=== PATIENT | male | born 1935 | race Caucasian/White ===

== ENCOUNTER 2017-10-12 08:08 | Day surgery (SDC) | payer MEDICARE, OTHER ==
[~2017-10-12] VITALS: Ht 172.7 cm; Wt 108.0 kg
[~2017-10-12 08:08] MED LIST: ALPR.25 PO; AMLO5 PO; ASPI325EC; ASPI81CH; ASPI81CH PO; ASPI81EC; ATEN50; ATEN50 PO; ATOR40TA PO; ATOR80 PO; Aspir 8181 MG PO; Benazepril HCl10 MG PO; CAPT25 PO; CARV25 PO; CARV6.25 PO; CEPH500 PO; CHOL10002 PO; CLOB.05TC TOP; CLOP75 PO; CYCL10 PO; DELTASONE20 MG PO; DOCU100 PO; Duoneb 2.5-0.5 M3 ML IH; ESZO3 PO; FAMO40 PO; FLUO10; FLUO20 PO; FLUSAL5005 INH; FLUT.05NI; FURO20 PO; FURO40 PO; HYDACE5 PO; HYDCHL12.5; HYDHCL25 PO; HYDR1TAB94 PO; K-Dur20 MEQ; LEVO750 PO; LIDO2TG30 TOP; LISI5 PO; LOSA25; LOSA25 PO; LOSHYD PO; Lanoxin125 MCG; METO2.5; MONT10T; MULTCH; MULVITMINF PO; MUPI2TO; OMEP20ER PO; Omeprazole20 M1 PO; POTA10T PO; POTCHL10ER PO; PRED10 PO; PRED20 PO; PROZAC20 MG PO; Prednisone20 MG PO; Prozac20 MG; Prozac20 MG PO; SERT50 PO; SIMV40; SPIHYD; SPIR25 PO; TAMS.4ER PO; TAMSULOSIN HCL0.4 MG PO; TEMA15 PO; TIOT18 IH; TIOT18 PO; Tylenol325 MG PO; VITB100; VOL-CARE RX TA1 EACH PO; XYZAL5 MG; ZAFI20 PO
[2017-10-13 04:13] LABS: BASOPHILS ABSOLUTE AUTO 0.05 K/mm3 (0.00-0.23); BASOPHILS PERCENT AUTO 1 % (0-2); EOSINOPHILS ABSOLUTE AUTO 0.17 K/mm3 (0.00-0.68); EOSINOPHILS PERCENT AUTO 3 % (0-6); Hematocrit 34.9 % (37.0-53.0); Hemoglobin 9.8 g/dL (13.5-17.5); IMMATURE GRAN ABSOLUTE AUTO 0.01 K/mm3 (0.00-0.10); IMMATURE GRAN PERCENT AUTO 0 % (0-1); LYMPHOCYTES ABSOLUTE AUTO 1.14 K/mm3 (0.84-5.20); LYMPHOCYTES PERCENT AUTO 18 % (21-46); MONOCYTES ABSOLUTE AUTO 0.66 K/mm3 (0.16-1.47); MONOCYTES PERCENT AUTO 10 % (4-13); Mean Corpuscular HGB 25.1 pg (26.0-34.0); Mean Corpuscular HGB Conc 28.1 g/dL (31.5-36.5); Mean Corpuscular Volume 89 fL (80-100); Mean Platelet Volume 9.6 fL (9.1-12.4); NEUTROPHILS ABSOLUTE AUTO 4.36 K/mm3 (1.96-9.15); NEUTROPHILS PERCENT AUTO 68 % (41-73); Platelet Count 161 K/mm3 (150-400); RDW Standard Deviation 52.7 fL (35.1-46.3); Red Blood Cell Count 3.91 M/mm3 (4.30-5.90); White Blood Cell Count 6.39 K/mm3 (4.00-11.30)
[2017-10-13 04:41] LABS: Bun/Creatinine Ratio 13.4 (12.0-20.0); Calcium, Blood 8.3 mg/dL (8.5-10.1); Creatinine, Blood 1.57 mg/dL (0.60-1.20); Potassium, Blood 4.3 mmol/L (3.5-5.5)
[2017-10-13] MEDS ORDERED: RANI150 PO (10:41)
[2017-10-13] MEDS ORDERED: NAC600 MG PO (10:41)
== END 2017-10-13 11:21 | disposition home or self-care (01) ==
LOC: MHTC 08:08 → ICUE 14:50 → MHTC 10-13 11:21
PROVIDERS: Internal Medicine Interventional Cardiology
PROC: 4A023N7 Measurement of Cardiac Sampling and Pressure, Left Heart, Percutaneous Approach (ICD-10-PCS; principal; 2017-10-12)
PROC: 4A033BC Measurement of Arterial Pressure, Coronary, Percutaneous Approach (ICD-10-PCS; principal; 2017-10-12)
PROC: B213YZZ Fluoroscopy of Multiple Coronary Artery Bypass Grafts using Other Contrast (ICD-10-PCS; principal; 2017-10-12)
PROC: 027035Z Dilation of Coronary Artery, One Artery with Two Drug-eluting Intraluminal Devices, Percutaneous Approach (ICD-10-PCS; principal; 2017-10-12)
PROC: 02703ZZ Dilation of Coronary Artery, One Artery, Percutaneous Approach (ICD-10-PCS; principal; 2017-10-12)
PROC: B211YZZ Fluoroscopy of Multiple Coronary Arteries using Other Contrast (ICD-10-PCS; principal; 2017-10-12)
PROC: B218YZZ Fluoroscopy of Left Internal Mammary Bypass Graft using Other Contrast (ICD-10-PCS; principal; 2017-10-12)
PROC: B240ZZ3 Ultrasonography of Single Coronary Artery, Intravascular (ICD-10-PCS; principal; 2017-10-12)
DX: I25.10 Atherosclerotic heart disease of native coronary artery without angina pectoris (principal); R94.39 Abnormal result of other cardiovascular function study; R06.02 Shortness of breath; G47.30 Sleep apnea, unspecified; Z79.02 Long term (current) use of antithrombotics/antiplatelets; Z99.81 Dependence on supplemental oxygen
CPT/HCPCS: 36415; 80048; 85025; 92978; 93005; 93010; 93455; 93571; C1725; C1753; C1760; C1769; C1874; C9600; J1644; J2250; J3010; J7030; Q9967

== ENCOUNTER 2017-11-02 18:46 | Inpatient (IN) | payer MEDICARE, OTHER ==
[~2017-11-02] VITALS: Ht 182.9 cm; Wt 104.0 kg
[~2017-11-02 18:46] MED LIST changes: +NAC600 MG PO; +RANI150 PO
[2017-11-02 19:14] LABS: PO2 Arterial 110 mmHg (80-100); pH Blood Arterial 7.22 (7.35-7.45)
[2017-11-02 19:15] LABS: PCO2 Arterial > 105 mmHg (35-45)
[2017-11-02 19:18] LABS: BASOPHILS ABSOLUTE AUTO 0.08 K/mm3 (0.00-0.23); BASOPHILS PERCENT AUTO 1 % (0-2); EOSINOPHILS ABSOLUTE AUTO 0.13 K/mm3 (0.00-0.68); EOSINOPHILS PERCENT AUTO 1 % (0-6); Hematocrit 45.4 % (37.0-53.0); Hemoglobin 12.4 g/dL (13.5-17.5); IMMATURE GRAN ABSOLUTE AUTO 0.04 K/mm3 (0.00-0.10); IMMATURE GRAN PERCENT AUTO 0 % (0-1); LYMPHOCYTES ABSOLUTE AUTO 1.65 K/mm3 (0.84-5.20); LYMPHOCYTES PERCENT AUTO 15 % (21-46); MONOCYTES ABSOLUTE AUTO 1.35 K/mm3 (0.16-1.47); MONOCYTES PERCENT AUTO 12 % (4-13); Mean Corpuscular HGB 25.3 pg (26.0-34.0); Mean Corpuscular HGB Conc 27.3 g/dL (31.5-36.5); Mean Corpuscular Volume 93 fL (80-100); Mean Platelet Volume 8.7 fL (9.1-12.4); NEUTROPHILS PERCENT AUTO 71 % (41-73); Platelet Count 196 K/mm3 (150-400); Red Blood Cell Count 4.91 M/mm3 (4.30-5.90); White Blood Cell Count 11.35 K/mm3 (4.00-11.30)
[2017-11-02 19:47] LABS: Alanine Aminotransfer (ALT/SGP 24 U/L (12-78); Albumin, Blood 3.8 g/dL (3.4-5.0); Albumin/Globulin Ratio 1.1 (0.8-1.8); Alk Phos 171 U/L (50-136); Aspartate Aminotrans (AST/SGOT 22 U/L (12-37); Bilirubin, Total 0.7 mg/dL (0.1-1.0); Blood Urea Nitrogen 26 mg/dL (8-24); Bun/Creatinine Ratio 18.8 (12.0-20.0); Calcium, Blood 8.5 mg/dL (8.5-10.1); Chloride, Blood 97 mmol/L (98-108); Creatinine, Blood 1.38 mg/dL (0.60-1.20); Globulin, Blood 3.4 g/dL (2.2-4.0); Glomerular Filtration Rate 53 (60-); Glucose, Blood 110 mg/dL (70-99); Potassium, Blood 3.5 mmol/L (3.5-5.5); Sodium, Blood 145 mmol/L (136-145); Total Protein, Blood 7.2 g/dL (6.4-8.2)
[2017-11-02 19:56] LABS: Anion Gap Unable to Calculate mmol/L (6-16)
[2017-11-02 19:57] LABS: CO2, Blood >45 mmol/L (21-32)
[2017-11-02 20:42] LABS: Source, Urine Clean Catch
[2017-11-02 20:44] LABS: Bilirubin, Urine Neg (Neg); Blood, Urine 3+ (Neg); Glucose Qualitative, Urine Neg (Neg); Ketones, Urine Neg (Neg); Leukocyte Esterase, Urine Neg (Neg); Nitrite, Urine Neg (Neg); Protein, Urine 3+ (Neg); Urobilinogen, Urine NORM (Normal)
[2017-11-02 20:54] LABS: Appearance, Urine Hazy (Clear); Color, Urine Yellow (P-Yellow)
[2017-11-02 20:55] LABS: Amorphous Light (0-Heavy); Bacteria Not Seen /hpf; Mucus Mod (0-Heavy); Squamous Epithelial Cells Not Seen /hpf (Few); White Blood Cells, Urine Not Seen /hpf (0-5)
[2017-11-02 21:18] LABS: U Amphetamine Screen Not Detected; U Barbituate Screen Not Detected; U Benzodiazapine Screen Not Detected; U Buprenorphine Screen Not Detected; U Cannabinoids Screen Not Detected; U Cocaine Screen Not Detected; U Methadone Screen Not Detected; U Methamphetamine Screen Not Detected; U Opiates Screen Not Detected; U Oxycodone Screen Not Detected; U Phencyclidine Screen Not Detected; U Propoxyphene Screen Not Detected
[2017-11-02 22:15] LABS: PO2 Arterial 67.2 mmHg (80-100); pH Blood Arterial 7.26 (7.35-7.45)
[2017-11-02 22:16] LABS: PCO2 Arterial > 105 mmHg (35-45)
[2017-11-03 03:31] LABS: PCO2 Arterial 51.6 mmHg (35-45); PO2 Arterial 59.4 mmHg (80-100); pH Blood Arterial 7.56 (7.35-7.45)
[2017-11-03 04:59] LABS: BASOPHILS ABSOLUTE AUTO 0.02 K/mm3 (0.00-0.23); BASOPHILS PERCENT AUTO 0 % (0-2); EOSINOPHILS ABSOLUTE AUTO 0.02 K/mm3 (0.00-0.68); EOSINOPHILS PERCENT AUTO 0 % (0-6); Hematocrit 41.9 % (37.0-53.0); Hemoglobin 11.9 g/dL (13.5-17.5); IMMATURE GRAN ABSOLUTE AUTO 0.03 K/mm3 (0.00-0.10); IMMATURE GRAN PERCENT AUTO 0 % (0-1); LYMPHOCYTES ABSOLUTE AUTO 1.07 K/mm3 (0.84-5.20); LYMPHOCYTES PERCENT AUTO 11 % (21-46); MONOCYTES ABSOLUTE AUTO 0.25 K/mm3 (0.16-1.47); MONOCYTES PERCENT AUTO 3 % (4-13); Mean Corpuscular HGB 25.4 pg (26.0-34.0); Mean Corpuscular HGB Conc 28.4 g/dL (31.5-36.5); NEUTROPHILS ABSOLUTE AUTO 8.54 K/mm3 (1.96-9.15); NEUTROPHILS PERCENT AUTO 86 % (41-73); RDW Coefficient Variation 15.9 % (11.7-14.2); RDW Standard Deviation 51.5 fL (35.1-46.3); Red Blood Cell Count 4.69 M/mm3 (4.30-5.90); White Blood Cell Count 9.93 K/mm3 (4.00-11.30)
[2017-11-03 05:04] LABS: Mean Corpuscular Volume 89 fL (80-100); Mean Platelet Volume 9.8 fL (9.1-12.4); Platelet Count 133 K/mm3 (150-400)
[2017-11-03 05:08] LABS: Albumin, Blood 3.3 g/dL (3.4-5.0); Bilirubin, Total 0.8 mg/dL (0.1-1.0); Bun/Creatinine Ratio 21.5 (12.0-20.0); Calcium, Blood 8.7 mg/dL (8.5-10.1); Creatinine, Blood 1.44 mg/dL (0.60-1.20); Globulin, Blood 3.3 g/dL (2.2-4.0); Potassium, Blood 3.7 mmol/L (3.5-5.5); Total Protein, Blood 6.6 g/dL (6.4-8.2)
[2017-11-04 04:09] LABS: BASOPHILS ABSOLUTE AUTO 0.01 K/mm3 (0.00-0.23); BASOPHILS PERCENT AUTO 0 % (0-2); EOSINOPHILS PERCENT AUTO 0 % (0-6); Hematocrit 37.6 % (37.0-53.0); Hemoglobin 10.7 g/dL (13.5-17.5); IMMATURE GRAN ABSOLUTE AUTO 0.07 K/mm3 (0.00-0.10); IMMATURE GRAN PERCENT AUTO 0 % (0-1); LYMPHOCYTES ABSOLUTE AUTO 1.12 K/mm3 (0.84-5.20); LYMPHOCYTES PERCENT AUTO 7 % (21-46); MONOCYTES ABSOLUTE AUTO 0.42 K/mm3 (0.16-1.47); MONOCYTES PERCENT AUTO 3 % (4-13); Mean Corpuscular HGB 24.6 pg (26.0-34.0); Mean Corpuscular HGB Conc 28.5 g/dL (31.5-36.5); Mean Platelet Volume 9.5 fL (9.1-12.4); NEUTROPHILS ABSOLUTE AUTO 14.24 K/mm3 (1.96-9.15); NEUTROPHILS PERCENT AUTO 90 % (41-73); Platelet Count 166 K/mm3 (150-400); RDW Coefficient Variation 16.6 % (11.7-14.2); RDW Standard Deviation 51.2 fL (35.1-46.3); Red Blood Cell Count 4.35 M/mm3 (4.30-5.90); White Blood Cell Count 15.86 K/mm3 (4.00-11.30)
[2017-11-04 04:11] LABS: Mean Corpuscular Volume 86 fL (80-100)
[2017-11-04 04:29] LABS: Anion Gap 6 mmol/L (6-16); Blood Urea Nitrogen 55 mg/dL (8-24); Bun/Creatinine Ratio 30.2 (12.0-20.0); CO2, Blood 40 mmol/L (21-32); Calcium, Blood 8.4 mg/dL (8.5-10.1); Chloride, Blood 95 mmol/L (98-108); Creatinine, Blood 1.82 mg/dL (0.60-1.20); Glomerular Filtration Rate 38 (60-); Glucose, Blood 133 mg/dL (70-99); Phosphorus, Blood 2.7 mg/dL (2.5-4.9); Potassium, Blood 3.5 mmol/L (3.5-5.5); Sodium, Blood 141 mmol/L (136-145)
[2017-11-04 05:47] LABS: pH Blood Arterial 7.46 (7.35-7.45)
[2017-11-05 05:13] LABS: PCO2 Arterial 78.8 mmHg (35-45); PO2 Arterial 71.4 mmHg (80-100); pH Blood Arterial 7.37 (7.35-7.45)
[2017-11-05 08:26] LABS: BASOPHILS ABSOLUTE AUTO 0.01 K/mm3 (0.00-0.23); BASOPHILS PERCENT AUTO 0 % (0-2); EOSINOPHILS PERCENT AUTO 0 % (0-6); Hematocrit 42.1 % (37.0-53.0); IMMATURE GRAN ABSOLUTE AUTO 0.07 K/mm3 (0.00-0.10); IMMATURE GRAN PERCENT AUTO 1 % (0-1); LYMPHOCYTES ABSOLUTE AUTO 0.91 K/mm3 (0.84-5.20); LYMPHOCYTES PERCENT AUTO 7 % (21-46); MONOCYTES ABSOLUTE AUTO 0.66 K/mm3 (0.16-1.47); MONOCYTES PERCENT AUTO 5 % (4-13); Mean Corpuscular HGB 25.3 pg (26.0-34.0); Mean Corpuscular HGB Conc 28.5 g/dL (31.5-36.5); Mean Platelet Volume 9.3 fL (9.1-12.4); NEUTROPHILS ABSOLUTE AUTO 11.72 K/mm3 (1.96-9.15); NEUTROPHILS PERCENT AUTO 88 % (41-73); Platelet Count 175 K/mm3 (150-400); RDW Coefficient Variation 16.9 % (11.7-14.2); RDW Standard Deviation 54.4 fL (35.1-46.3); Red Blood Cell Count 4.74 M/mm3 (4.30-5.90); White Blood Cell Count 13.37 K/mm3 (4.00-11.30)
[2017-11-05 08:36] LABS: Mean Corpuscular Volume 89 fL (80-100)
[2017-11-05 08:49] LABS: Albumin, Blood 3.5 g/dL (3.4-5.0); Anion Gap 4 mmol/L (6-16); Blood Urea Nitrogen 65 mg/dL (8-24); Bun/Creatinine Ratio 34.4 (12.0-20.0); CO2, Blood 42 mmol/L (21-32); Calcium, Blood 8.8 mg/dL (8.5-10.1); Chloride, Blood 99 mmol/L (98-108); Creatinine, Blood 1.89 mg/dL (0.60-1.20); Glomerular Filtration Rate 37 (60-); Glucose, Blood 127 mg/dL (70-99); Phosphorus, Blood 3.6 mg/dL (2.5-4.9); Potassium, Blood 3.6 mmol/L (3.5-5.5); Sodium, Blood 145 mmol/L (136-145)
[2017-11-06 04:34] LABS: BASOPHILS ABSOLUTE AUTO 0.01 K/mm3 (0.00-0.23); BASOPHILS PERCENT AUTO 0 % (0-2); EOSINOPHILS PERCENT AUTO 0 % (0-6); Hematocrit 44.7 % (37.0-53.0); Hemoglobin 12.1 g/dL (13.5-17.5); IMMATURE GRAN ABSOLUTE AUTO 0.08 K/mm3 (0.00-0.10); IMMATURE GRAN PERCENT AUTO 1 % (0-1); LYMPHOCYTES ABSOLUTE AUTO 0.78 K/mm3 (0.84-5.20); LYMPHOCYTES PERCENT AUTO 7 % (21-46); MONOCYTES ABSOLUTE AUTO 1.05 K/mm3 (0.16-1.47); MONOCYTES PERCENT AUTO 9 % (4-13); Mean Corpuscular HGB 24.9 pg (26.0-34.0); Mean Corpuscular HGB Conc 27.1 g/dL (31.5-36.5); Mean Platelet Volume 9.6 fL (9.1-12.4); NEUTROPHILS ABSOLUTE AUTO 9.43 K/mm3 (1.96-9.15); NEUTROPHILS PERCENT AUTO 83 % (41-73); Platelet Count 177 K/mm3 (150-400); RDW Coefficient Variation 16.9 % (11.7-14.2); RDW Standard Deviation 56.5 fL (35.1-46.3); Red Blood Cell Count 4.86 M/mm3 (4.30-5.90); White Blood Cell Count 11.35 K/mm3 (4.00-11.30)
[2017-11-06 04:47] LABS: PO2 Arterial 102 mmHg (80-100); pH Blood Arterial 7.32 (7.35-7.45)
[2017-11-06 04:49] LABS: Mean Corpuscular Volume 92 fL (80-100)
[2017-11-06 04:50] LABS: PCO2 Arterial 82.9 mmHg (35-45)
[2017-11-06 05:05] LABS: Albumin, Blood 3.4 g/dL (3.4-5.0); Anion Gap 4 mmol/L (6-16); Blood Urea Nitrogen 66 mg/dL (8-24); Bun/Creatinine Ratio 37.5 (12.0-20.0); CO2, Blood 43 mmol/L (21-32); Calcium, Blood 8.7 mg/dL (8.5-10.1); Chloride, Blood 98 mmol/L (98-108); Creatinine, Blood 1.76 mg/dL (0.60-1.20); Glomerular Filtration Rate 40 (60-); Glucose, Blood 104 mg/dL (70-99); Phosphorus, Blood 3.9 mg/dL (2.5-4.9); Potassium, Blood 3.3 mmol/L (3.5-5.5); Sodium, Blood 145 mmol/L (136-145)
[2017-11-07 04:54] LABS: PCO2 Arterial 80.5 mmHg (35-45); PO2 Arterial 106 mmHg (80-100); pH Blood Arterial 7.34 (7.35-7.45)
[2017-11-07 05:11] LABS: Bun/Creatinine Ratio 38.5 (12.0-20.0); Calcium, Blood 8.5 mg/dL (8.5-10.1); Creatinine, Blood 1.95 mg/dL (0.60-1.20); Potassium, Blood 3.8 mmol/L (3.5-5.5)
[2017-11-07] MEDS ORDERED: Duoneb 2.5-0.5 M3 ML INH (13:01)
[2017-11-07] MEDS ORDERED: PRED20 PO (13:03)
[2017-11-07] MEDS ORDERED: SPIR25 PO (13:03)
== END 2017-11-07 15:11 | disposition home or self-care (01) | DRG 205 ==
LOC: ER 18:46 → ICUE 20:09 → PCU 20:09 → ICUW 20:09 → ICUE 21:07 → PCU 21:36 → ICUE 11-03 08:12 → PCU 11-03 15:57
PROVIDERS: Emergency Medicine; Family Medicine; Internal Medicine; Internal Medicine Pulmonary Disease
PROC: 5A09357 Assistance with Respiratory Ventilation, Less than 24 Consecutive Hours, Continuous Positive Airway Pressure (ICD-10-PCS; principal; 2017-11-03)
DX: E66.2 Morbid (severe) obesity with alveolar hypoventilation (principal); J96.21 Acute and chronic respiratory failure with hypoxia; G92 Toxic encephalopathy; I50.43 Acute on chronic combined systolic (congestive) and diastolic (congestive) heart failure; J96.22 Acute and chronic respiratory failure with hypercapnia; J44.1 Chronic obstructive pulmonary disease with (acute) exacerbation; I13.0 Hypertensive heart and chronic kidney disease with heart failure and stage 1 through stage 4 chronic kidney disease, or unspecified chronic kidney disease; N17.9 Acute kidney failure, unspecified; J98.11 Atelectasis; E87.3 Alkalosis; I25.10 Atherosclerotic heart disease of native coronary artery without angina pectoris; N18.3 Chronic kidney disease, stage 3 (moderate); T50.1X5A Adverse effect of loop [high-ceiling] diuretics, initial encounter; D63.8 Anemia in other chronic diseases classified elsewhere; F32.9 Major depressive disorder, single episode, unspecified; Z95.1 Presence of aortocoronary bypass graft; M40.209 Unspecified kyphosis, site unspecified; Z68.32 Body mass index [BMI] 32.0-32.9, adult
CPT/HCPCS: 36415; 36600; 51702; 70450; 71045; 71046; 80048; 80053; 80069; 81001; 82803; 82947; 83735; 83880; 84145; 85025; 87081; 93005; 93010; 94640; 94644; 94660; 94762; 96374; 97116; 97162; 97166; 97530; 99285; G0515; G8978; G8979; G8987; G8988; J0696; J1120; J1650; J1956; J2310; J2930; J7030

== ENCOUNTER 2017-11-10 17:15 | Inpatient (IN) | payer MEDICARE, OTHER ==
[~2017-11-10] VITALS: Ht 182.9 cm; Wt 108.0 kg
[~2017-11-10 17:15] MED LIST changes: -ASPI81CH; +Duoneb 2.5-0.5 M3 ML INH
[2017-11-10 17:54] LABS: PO2 Arterial 106 mmHg (80-100); pH Blood Arterial 7.25 (7.35-7.45)
[2017-11-10 17:55] LABS: PCO2 Arterial 104 mmHg (35-45)
[2017-11-10 18:02] LABS: BASOPHILS ABSOLUTE AUTO 0.02 K/mm3 (0.00-0.23); BASOPHILS PERCENT AUTO 0 % (0-2); EOSINOPHILS ABSOLUTE AUTO 0.29 K/mm3 (0.00-0.68); EOSINOPHILS PERCENT AUTO 2 % (0-6); Hematocrit 44.3 % (37.0-53.0); IMMATURE GRAN ABSOLUTE AUTO 0.11 K/mm3 (0.00-0.10); IMMATURE GRAN PERCENT AUTO 1 % (0-1); LYMPHOCYTES ABSOLUTE AUTO 1.17 K/mm3 (0.84-5.20); LYMPHOCYTES PERCENT AUTO 9 % (21-46); MONOCYTES ABSOLUTE AUTO 1.57 K/mm3 (0.16-1.47); MONOCYTES PERCENT AUTO 11 % (4-13); Mean Corpuscular HGB 24.9 pg (26.0-34.0); Mean Corpuscular HGB Conc 27.1 g/dL (31.5-36.5); Mean Corpuscular Volume 92 fL (80-100); Mean Platelet Volume 10.3 fL (9.1-12.4); NEUTROPHILS ABSOLUTE AUTO 10.62 K/mm3 (1.96-9.15); NEUTROPHILS PERCENT AUTO 77 % (41-73); Platelet Count 153 K/mm3 (150-400); Red Blood Cell Count 4.81 M/mm3 (4.30-5.90); White Blood Cell Count 13.78 K/mm3 (4.00-11.30)
[2017-11-10 18:21] LABS: Magnesium, Blood 2.6 mg/dL (1.6-2.4); Troponin I <0.015 ng/mL (0.000-0.040)
[2017-11-10 18:22] LABS: Alanine Aminotransfer (ALT/SGP 36 U/L (12-78); Albumin, Blood 3.2 g/dL (3.4-5.0); Alk Phos 127 U/L (50-136); Aspartate Aminotrans (AST/SGOT 31 U/L (12-37); Bilirubin, Total 0.5 mg/dL (0.1-1.0); Blood Urea Nitrogen 48 mg/dL (8-24); Bun/Creatinine Ratio 32.4 (12.0-20.0); Calcium, Blood 8.6 mg/dL (8.5-10.1); Chloride, Blood 99 mmol/L (98-108); Creatinine, Blood 1.48 mg/dL (0.60-1.20); Globulin, Blood 3.1 g/dL (2.2-4.0); Glomerular Filtration Rate 49 (60-); Glucose, Blood 155 mg/dL (70-99); Potassium, Blood 4.4 mmol/L (3.5-5.5); Sodium, Blood 145 mmol/L (136-145); Total Protein, Blood 6.3 g/dL (6.4-8.2)
[2017-11-10 18:25] LABS: Anion Gap Unable to Calculate mmol/L (6-16)
[2017-11-10 18:26] LABS: CO2, Blood >45 mmol/L (21-32)
[2017-11-10 20:27] LABS: PO2 Arterial 76.2 mmHg (80-100)
[2017-11-10 20:28] LABS: PCO2 Arterial 98.8 mmHg (35-45); pH Blood Arterial 7.27 (7.35-7.45)
[2017-11-10 21:51] LABS: Source, Urine Catheter
[2017-11-10 21:53] LABS: Bilirubin, Urine Neg (Neg); Blood, Urine 1+ (Neg); Glucose Qualitative, Urine Neg (Neg); Ketones, Urine Neg (Neg); Leukocyte Esterase, Urine Neg (Neg); Nitrite, Urine Neg (Neg); Protein, Urine Neg (Neg); Urobilinogen, Urine NORM (Normal)
[2017-11-10 22:02] LABS: Appearance, Urine Clear (Clear); Color, Urine Yellow (P-Yellow)
[2017-11-10 22:03] LABS: Bacteria Few /hpf; Red Blood Cells, Urine 0-2 /hpf (0-2); Squamous Epithelial Cells Few /hpf (Few); White Blood Cells, Urine 0-2 /hpf (0-5)
[2017-11-11 04:08] LABS: BASOPHILS ABSOLUTE AUTO 0.01 K/mm3 (0.00-0.23); BASOPHILS PERCENT AUTO 0 % (0-2); EOSINOPHILS PERCENT AUTO 0 % (0-6); Hematocrit 41.1 % (37.0-53.0); Hemoglobin 11.5 g/dL (13.5-17.5); IMMATURE GRAN ABSOLUTE AUTO 0.11 K/mm3 (0.00-0.10); IMMATURE GRAN PERCENT AUTO 1 % (0-1); LYMPHOCYTES ABSOLUTE AUTO 0.68 K/mm3 (0.84-5.20); LYMPHOCYTES PERCENT AUTO 6 % (21-46); MONOCYTES ABSOLUTE AUTO 0.05 K/mm3 (0.16-1.47); MONOCYTES PERCENT AUTO 0 % (4-13); Mean Corpuscular HGB 25.2 pg (26.0-34.0); Mean Corpuscular Volume 90 fL (80-100); Mean Platelet Volume 9.7 fL (9.1-12.4); NEUTROPHILS ABSOLUTE AUTO 10.78 K/mm3 (1.96-9.15); NEUTROPHILS PERCENT AUTO 93 % (41-73); Platelet Count 150 K/mm3 (150-400); RDW Coefficient Variation 16.8 % (11.7-14.2); RDW Standard Deviation 55.3 fL (35.1-46.3); Red Blood Cell Count 4.56 M/mm3 (4.30-5.90); White Blood Cell Count 11.63 K/mm3 (4.00-11.30)
[2017-11-11 04:34] LABS: Alanine Aminotransfer (ALT/SGP 33 U/L (12-78); Albumin, Blood 2.9 g/dL (3.4-5.0); Alk Phos 107 U/L (50-136); Anion Gap 5 mmol/L (6-16); Aspartate Aminotrans (AST/SGOT 17 U/L (12-37); Bilirubin, Total 0.7 mg/dL (0.1-1.0); Blood Urea Nitrogen 45 mg/dL (8-24); Bun/Creatinine Ratio 38.5 (12.0-20.0); CO2, Blood 40 mmol/L (21-32); Calcium, Blood 8.5 mg/dL (8.5-10.1); Chloride, Blood 101 mmol/L (98-108); Creatinine, Blood 1.17 mg/dL (0.60-1.20); Globulin, Blood 2.8 g/dL (2.2-4.0); Glomerular Filtration Rate >60 (60-); Glucose, Blood 142 mg/dL (70-99); Potassium, Blood 4.2 mmol/L (3.5-5.5); Sodium, Blood 146 mmol/L (136-145); Total Protein, Blood 5.7 g/dL (6.4-8.2)
[2017-11-11 10:15] LABS: PCO2 Arterial 59.2 mmHg (35-45); pH Blood Arterial 7.45 (7.35-7.45)
[2017-11-11 10:16] LABS: PO2 Arterial 90.8 mmHg (80-100)
[2017-11-12 04:59] LABS: PCO2 Arterial 46.4 mmHg (35-45); PO2 Arterial 103 mmHg (80-100); pH Blood Arterial 7.52 (7.35-7.45)
[2017-11-12 05:51] LABS: BASOPHILS ABSOLUTE AUTO 0.02 K/mm3 (0.00-0.23); BASOPHILS PERCENT AUTO 0 % (0-2); EOSINOPHILS PERCENT AUTO 0 % (0-6); Hematocrit 38.2 % (37.0-53.0); Hemoglobin 11.3 g/dL (13.5-17.5); IMMATURE GRAN PERCENT AUTO 2 % (0-1); LYMPHOCYTES ABSOLUTE AUTO 1.22 K/mm3 (0.84-5.20); LYMPHOCYTES PERCENT AUTO 9 % (21-46); MONOCYTES ABSOLUTE AUTO 1.15 K/mm3 (0.16-1.47); MONOCYTES PERCENT AUTO 8 % (4-13); Mean Corpuscular HGB 25.3 pg (26.0-34.0); Mean Corpuscular HGB Conc 29.6 g/dL (31.5-36.5); Mean Platelet Volume 9.7 fL (9.1-12.4); NEUTROPHILS ABSOLUTE AUTO 11.13 K/mm3 (1.96-9.15); NEUTROPHILS PERCENT AUTO 81 % (41-73); Platelet Count 183 K/mm3 (150-400); RDW Coefficient Variation 17.6 % (11.7-14.2); Red Blood Cell Count 4.47 M/mm3 (4.30-5.90); White Blood Cell Count 13.72 K/mm3 (4.00-11.30)
[2017-11-12 05:52] LABS: Mean Corpuscular Volume 86 fL (80-100)
[2017-11-12 06:21] LABS: Albumin, Blood 2.8 g/dL (3.4-5.0); Bilirubin, Total 0.7 mg/dL (0.1-1.0); Bun/Creatinine Ratio 33.1 (12.0-20.0); Calcium, Blood 8.5 mg/dL (8.5-10.1); Creatinine, Blood 1.75 mg/dL (0.60-1.20); Globulin, Blood 2.9 g/dL (2.2-4.0); Potassium, Blood 3.7 mmol/L (3.5-5.5); Total Protein, Blood 5.7 g/dL (6.4-8.2)
[2017-11-13 04:09] LABS: PCO2 Arterial 70.1 mmHg (35-45); PO2 Arterial 114 mmHg (80-100); pH Blood Arterial 7.32 (7.35-7.45)
[2017-11-13 05:52] LABS: Albumin, Blood 2.8 g/dL (3.4-5.0); Albumin/Globulin Ratio 0.9 (0.8-1.8); Bilirubin, Total 0.5 mg/dL (0.1-1.0); Bun/Creatinine Ratio 30.4 (12.0-20.0); Calcium, Blood 8.7 mg/dL (8.5-10.1); Creatinine, Blood 2.04 mg/dL (0.60-1.20); Potassium, Blood 3.8 mmol/L (3.5-5.5); Total Protein, Blood 5.8 g/dL (6.4-8.2)
[2017-11-13 09:25] LABS: PCO2 Arterial 61.3 mmHg (35-45); PO2 Arterial 61.1 mmHg (80-100); pH Blood Arterial 7.34 (7.35-7.45)
[2017-11-13] MEDS ORDERED: ACET325 PO (11:39)
[2017-11-13] MEDS ORDERED: ALBU2.5V5 INH (11:40)
[2017-11-13] MEDS ORDERED: BISA5EC PO (11:41)
[2017-11-13] MEDS ORDERED: MIRALAX17 GM PO (11:41)
[2017-11-13] MEDS ORDERED: PANT40 PO (11:42)
[2017-11-13] MEDS ORDERED: SENN187 PO (11:42)
[2017-11-13] MEDS ORDERED: BUDE.5 INH (11:44)
== END 2017-11-13 13:10 | DRG 189 ==
LOC: ER 17:15 → ICUE 18:34 → PCU 18:34 → ICUW 18:34 → ICUE 20:06 → PCU 20:10 → ICUE 11-11 16:16 → PCU 11-11 16:56
PROVIDERS: Emergency Medicine; Family Medicine; Internal Medicine; Internal Medicine Pulmonary Disease
PROC: 5A09357 Assistance with Respiratory Ventilation, Less than 24 Consecutive Hours, Continuous Positive Airway Pressure (ICD-10-PCS; principal; 2017-11-10)
DX: J96.21 Acute and chronic respiratory failure with hypoxia (principal); G93.41 Metabolic encephalopathy; J44.1 Chronic obstructive pulmonary disease with (acute) exacerbation; J98.11 Atelectasis; I13.0 Hypertensive heart and chronic kidney disease with heart failure and stage 1 through stage 4 chronic kidney disease, or unspecified chronic kidney disease; I50.42 Chronic combined systolic (congestive) and diastolic (congestive) heart failure; N17.9 Acute kidney failure, unspecified; I25.10 Atherosclerotic heart disease of native coronary artery without angina pectoris; N18.3 Chronic kidney disease, stage 3 (moderate); F41.9 Anxiety disorder, unspecified; F32.9 Major depressive disorder, single episode, unspecified; G47.33 Obstructive sleep apnea (adult) (pediatric); E66.9 Obesity, unspecified; R53.1 Weakness; F03.90 Unspecified dementia, unspecified severity, without behavioral disturbance, psychotic disturbance, mood disturbance, and anxiety; I87.2 Venous insufficiency (chronic) (peripheral); J96.22 Acute and chronic respiratory failure with hypercapnia; Z99.81 Dependence on supplemental oxygen; Z79.02 Long term (current) use of antithrombotics/antiplatelets; Z79.82 Long term (current) use of aspirin; Z79.52 Long term (current) use of systemic steroids; Z79.899 Other long term (current) drug therapy; Z95.1 Presence of aortocoronary bypass graft; Z95.5 Presence of coronary angioplasty implant and graft; Z87.891 Personal history of nicotine dependence; Z85.46 Personal history of malignant neoplasm of prostate; Z68.32 Body mass index [BMI] 32.0-32.9, adult
CPT/HCPCS: 36415; 36600; 51702; 71045; 71046; 80053; 81001; 82803; 83735; 83880; 84484; 85025; 93005; 93010; 94640; 94644; 94660; 94762; 96374; 97162; 97530; 99285; C9113; G8978; G8979; J0696; J1120; J1650; J1940; J1956; J2930; J7030

== ENCOUNTER → 2017-12-20 | Outpatient (CLI) | payer MEDICARE, OTHER ==
[~2017-12-20] MED LIST changes: +ACET325 PO; +ALBU2.5V5 INH; +BISA5EC PO; +BUDE.5 INH; +MIRALAX17 GM PO; +PANT40 PO; +SENN187 PO
[2017-12-20 12:36] LABS: Albumin, Blood 3.7 g/dL (3.4-5.0); Anion Gap 9 mmol/L (6-16); Blood Urea Nitrogen 70 mg/dL (8-24); Bun/Creatinine Ratio 28.3 (12.0-20.0); CO2, Blood 31 mmol/L (21-32); Calcium, Blood 9.3 mg/dL (8.5-10.1); Chloride, Blood 99 mmol/L (98-108); Creatinine, Blood 2.47 mg/dL (0.60-1.20); Glomerular Filtration Rate 27 (60-); Glucose, Blood 116 mg/dL (70-99); Phosphorus, Blood 3.5 mg/dL (2.5-4.9); Potassium, Blood 3.9 mmol/L (3.5-5.5); Sodium, Blood 139 mmol/L (136-145)
== END | disposition home or self-care (01) ==
LOC: LAB 12:00 → LAB SHORT 12:00
PROVIDERS: Family Medicine
DX: N18.3 Chronic kidney disease, stage 3 (moderate) (principal)
CPT/HCPCS: 80069

== ENCOUNTER → 2020-01-17 | Outpatient (CLI) | payer MEDICARE, OTHER ==
[~2020-01-17] MED LIST changes: +CETI5 PO
== END | disposition home or self-care (01) ==
LOC: PLD 08:06 → LAB SHORT 08:06
DX: D22.4 Melanocytic nevi of scalp and neck (principal)
CPT/HCPCS: 88305

== ENCOUNTER 2021-11-29 22:00 | Emergency (ER) | payer MEDICARE, OTHER ==
[~2021-11-29] VITALS: Ht 182.9 cm; Wt 117.9 kg
[2021-11-29 23:13] LABS: BASOPHILS ABSOLUTE AUTO 0.08 K/mm3 (0.00-0.23); BASOPHILS PERCENT AUTO 1 % (0-2); EOSINOPHILS ABSOLUTE AUTO 0.26 K/mm3 (0.00-0.68); EOSINOPHILS PERCENT AUTO 4 % (0-6); Hemoglobin 11.9 g/dL (13.5-17.5); IMMATURE GRAN ABSOLUTE AUTO 0.02 K/mm3 (0.00-0.10); IMMATURE GRAN PERCENT AUTO 0 % (0-1); LYMPHOCYTES ABSOLUTE AUTO 1.35 K/mm3 (0.84-5.20); LYMPHOCYTES PERCENT AUTO 20 % (21-46); MONOCYTES ABSOLUTE AUTO 0.74 K/mm3 (0.16-1.47); MONOCYTES PERCENT AUTO 11 % (4-13); Mean Corpuscular HGB 25.3 pg (26.0-34.0); Mean Corpuscular Volume 87 fL (80-100); Mean Platelet Volume 9.6 fL (9.1-12.4); NEUTROPHILS ABSOLUTE AUTO 4.24 K/mm3 (1.96-9.15); NEUTROPHILS PERCENT AUTO 63 % (41-73); Platelet Count 188 K/mm3 (150-400); RDW Coefficient Variation 16.5 % (11.7-14.2); RDW Standard Deviation 52.2 fL (35.1-46.3); Red Blood Cell Count 4.71 M/mm3 (4.30-5.90); White Blood Cell Count 6.69 K/mm3 (4.00-11.30)
[2021-11-29 23:25] LABS: Albumin, Blood 3.6 g/dL (3.4-5.0); Albumin/Globulin Ratio 1.1 (0.8-1.8); Bilirubin, Total 0.4 mg/dL (0.1-1.0); Bun/Creatinine Ratio 12.3 (12.0-20.0); Calcium, Blood 8.9 mg/dL (8.5-10.1); Creatinine, Blood 2.12 mg/dL (0.60-1.20); Globulin, Blood 3.3 g/dL (2.2-4.0); Potassium, Blood 4.1 mmol/L (3.5-5.5); Total Protein, Blood 6.9 g/dL (6.4-8.2)
[2021-11-30] MEDS ORDERED: LIDO700A20 TOP (01:32)
== END 2021-11-30 02:34 | disposition home or self-care (01) ==
LOC: ER 22:00
PROVIDERS: Emergency Medicine
DX: M25.512 Pain in left shoulder (principal); M54.2 Cervicalgia; R07.89 Other chest pain; I25.2 Old myocardial infarction; K21.9 Gastro-esophageal reflux disease without esophagitis; I11.0 Hypertensive heart disease with heart failure; I50.42 Chronic combined systolic (congestive) and diastolic (congestive) heart failure; I25.10 Atherosclerotic heart disease of native coronary artery without angina pectoris; J44.9 Chronic obstructive pulmonary disease, unspecified; Z95.5 Presence of coronary angioplasty implant and graft; Z95.1 Presence of aortocoronary bypass graft; Z79.899 Other long term (current) drug therapy; Z99.81 Dependence on supplemental oxygen; Z79.82 Long term (current) use of aspirin
CPT/HCPCS: 71045; 80053; 84484; 85025; 93005; 93010; A9270

== ENCOUNTER 2022-09-11 17:39 | Observation (INO) | payer MEDICARE, OTHER ==
[~2022-09-11] VITALS: Ht 182.9 cm; Wt 109.7 kg
[~2022-09-11 17:39] MED LIST changes: +LIDO700A20 TOP
[2022-09-11 18:05] VITALS: BP 142/84
--- NOTE | 2022-09-11 18:56 | NUR ---
ADMISSION NOTE: PATIENT IS A DIRECT ADMITT FROM [facility]. ARRIVED TO ROOM AT 1810 VIA WHEELCHAIR. PATIENT ADMITTED c DX OF CONSTIPATION. ADMISSION SCREENING DONE. ADMISSION AND SKIN ASSESSMENT c 2 RN MOBILE PET GROOMER COMPLETED. NOTED PATIENT HAS BRUISING TO BUE'S SCATTERED T/O. DARK SKIN DISCOLORATION TO BLE'S. NO IV ACCESS. PATIENT A&OX4. CALM, PLEASANT AND COOPERATIVE c CARE. PATIENT ON O2, 3L VIA NC c SPO2 OF 94%. DENIES CP/PRESSURE. LUNGS CLEAR/DIM T/O TO AUSCULTATION. DENIES SOB, N/V. PATIENT REPORT HAD SMALL BROWN BM 3 HRS PRIOR TO ADMISSION. VITAL SIGNS REVIEWED. PATIENT SITTING UP ON THE EOB AT THIS TIME. CALLED DR. STEWART AT AROUND 1815 BUT GOES TO VOICE MAIL. THIS RN LEFT A MESSAGE TO CALL BACK REGARDING HIS DIRECT ADMITT ARRIVE TO ROOM. CALL LIGHT IN REACH.
--- NOTE | 2022-09-12 | NUR ---
PT DOWN TO CT, PT UNABLE TO GET CT DUE TO NOT BEING ABLE TO TOLERATE LAYING FLAT FOR THE CT. PT STATES HE BECOMES SOB WHILE LAYING FLAT, EVEN WHILE HAVING 3L NC ON. NOTIFIED OF PTS INABILITY TO TOLERATE CT SCAN. PER WE WILL [place] IF PT NEEDS ABDOMINAL CT IN MORNING GIVEN THE ORIGINAL ORDER FOR THE CT WAS FOR THE PTS CONSTIPATION AND AFTER THE PT RECIEVED HIS FLEET ENEMA EARLIER THIS EVENING THE PT WAS ABLE TO HAVE A MEDIUM SIZED BOWEL MOVEMENT.
[2022-09-12 05:20] LABS: BASOPHILS ABSOLUTE AUTO 0.09 K/mm3 (0.00-0.23); BASOPHILS PERCENT AUTO 1 % (0-2); EOSINOPHILS ABSOLUTE AUTO 0.26 K/mm3 (0.00-0.68); EOSINOPHILS PERCENT AUTO 4 % (0-6); Hematocrit 41.1 % (37.0-53.0); Hemoglobin 12.2 g/dL (13.5-17.5); IMMATURE GRAN ABSOLUTE AUTO 0.02 K/mm3 (0.00-0.10); IMMATURE GRAN PERCENT AUTO 0 % (0-1); LYMPHOCYTES ABSOLUTE AUTO 1.34 K/mm3 (0.84-5.20); LYMPHOCYTES PERCENT AUTO 21 % (21-46); MONOCYTES ABSOLUTE AUTO 0.74 K/mm3 (0.16-1.47); MONOCYTES PERCENT AUTO 11 % (4-13); Mean Corpuscular HGB 25.8 pg (26.0-34.0); Mean Corpuscular HGB Conc 29.7 g/dL (31.5-36.5); Mean Corpuscular Volume 87 fL (80-100); Mean Platelet Volume 9.5 fL (9.1-12.4); NEUTROPHILS ABSOLUTE AUTO 4.02 K/mm3 (1.96-9.15); NEUTROPHILS PERCENT AUTO 62 % (41-73); Platelet Count 195 K/mm3 (150-400); RDW Coefficient Variation 16.3 % (11.7-14.2); RDW Standard Deviation 52.4 fL (35.1-46.3); Red Blood Cell Count 4.72 M/mm3 (4.30-5.90); White Blood Cell Count 6.47 K/mm3 (4.00-11.30)
--- NOTE | 2022-09-12 05:38 | NUR ---
SHIFT SUMMARY; NO ACUTE CHANGES T/O THE NIGHT. THE PT RECIEVED A FLEET ENEMA AT THE BEGINNING OF THE SHIFT, 1 MEDIUM SIZED FIRM BM SINCE THEN. THE PT HAS BEEN RESTING IN BED FOR THE ENTIRETY OF THE NIGHT. THE PT HAS BEEN ROTATING BETWEEN 3L NC AND 3L BLEED INTO A CPAP. THE PTS O2 SATS HAVE BEEN >95% ON BOTH THE NC AND THE CPAP. THE PT DENIES ANY PAIN OTHER THAN SOME PAIN IN HIS LOWER ABDOMEN R/T CONSTIPATION. THE PT DENIES ANY CHEST PAIN/PRESSURE T/O THE NIGHT. CURRENTLY THE PT IS RESTING IN BED WITH THE BED IN THE LOWEST POSITION AND THE CALL LIGHT AT BEDSIDE.
[2022-09-12 05:39] LABS: Albumin, Blood 3.3 g/dL (3.4-5.0); Albumin/Globulin Ratio 0.9 (0.8-1.8); Bilirubin, Total 0.7 mg/dL (0.1-1.0); Bun/Creatinine Ratio 10.3 (12.0-20.0); Creatinine, Blood 1.94 mg/dL (0.60-1.20); Globulin, Blood 3.5 g/dL (2.2-4.0); Magnesium, Blood 2.5 mg/dL (1.6-2.4); Potassium, Blood 4.3 mmol/L (3.5-5.5); Total Protein, Blood 6.8 g/dL (6.4-8.2)
[2022-09-12 06:50] VITALS: BP 167/94
[2022-09-12 08:50] VITALS: BP 168/83
[2022-09-12] MEDS ORDERED: IPRAT-ALBUT 0.5-3 ML INH (14:35)
[2022-09-12] MEDS ORDERED: MIRALAX17 GM PO (14:40)
[2022-09-12 14:56] VITALS: BP 147/76
--- NOTE | 2022-09-12 15:31 | NUR ---
NOTES/DISCHARGE SUMMARY: PATIENT A&OX4. SLIGHTLY NEW [place]. CALM, PLEASANT AND COOPERATIVE c CARE. USES CALL LIGHT APPROPRIATELY AND ABLE TO MAKE NEEDS KNOWN. PATIENT ADMITTED c DX OF CONSTIPATION. PATIENT HAD 3 LARGE BROWN BM THIS SHIFT. DENIES CP/PRESSURE, N/V, AND GENERALIZED PAIN. PATIENT REFUSED CT TO ABDOMEN. PER PATIENT NOT ABLE TO TOLERATE LAYING FLAT. DR. ELENA WAS NOTIFIED c THIS ISSUE. PATIENT ON O2 AT BASELINE 3L VIA NC c SPO2 100%. LUNGS CLEAR/DIM T/O TO AUSCULATION. PATIENT IS CONTINENT OF URINE AND STOOL. USES URINAL AND BSC. VITAL SIGNS REVIEWED. IV TO L HAND WAS DC'D. PATIENT DISCHARGE HOME. DISCHARGE INSTRUCTION PACKET GIVEN TO PATIENT. EDUCATE PATIENT REGARDING ADMITTING DX, S/S, TX, AND NEW PRESCRIBED MEDICATION. PATIENT STATED UNDERSTANDING AND NO FURTHER QUESTIONS. RX WAS FAXED TO PATIENT PREFERRED PHARMACY ([facility]). ALL PATIENT PERSONAL BELONGINGS WERE SENT HOME c THE PATIENT. PATIENT LEFT THE ROOM AT AROUND 1523. PATIENT TRANSPORTED VIA WHEELCHAIR BY MANAGER FILE STAFF TYLER TO PATIENT PRIVATE VEHICLE.
== END 2022-09-12 15:21 | disposition home or self-care (01) ==
LOC: MEDS 17:39
PROVIDERS: ADMIT Internal Medicine
DX: K59.00 Constipation, unspecified (principal); I13.0 Hypertensive heart and chronic kidney disease with heart failure and stage 1 through stage 4 chronic kidney disease, or unspecified chronic kidney disease; I50.32 Chronic diastolic (congestive) heart failure; N18.32 Chronic kidney disease, stage 3b; D63.1 Anemia in chronic kidney disease; I25.10 Atherosclerotic heart disease of native coronary artery without angina pectoris; F41.9 Anxiety disorder, unspecified; F32.A Depression, unspecified; K21.9 Gastro-esophageal reflux disease without esophagitis; E78.5 Hyperlipidemia, unspecified; J96.10 Chronic respiratory failure, unspecified whether with hypoxia or hypercapnia; G47.33 Obstructive sleep apnea (adult) (pediatric); E55.9 Vitamin D deficiency, unspecified; E66.01 Morbid (severe) obesity due to excess calories; Z99.81 Dependence on supplemental oxygen; Z79.899 Other long term (current) drug therapy; Z79.82 Long term (current) use of aspirin; Z74.09 Other reduced mobility
CPT/HCPCS: 36415; 80053; 83735; 85025; 94660; 94762; 96372; A9270; G0378; J1650

== ENCOUNTER 2024-06-11 06:22 | Observation (INO) | payer MEDICARE, OTHER ==
[~2024-06-11] VITALS: Ht 182.9 cm; Wt 108.9 kg
[~2024-06-11 06:22] MED LIST changes: -ALBU2.5V5 INH; +ALBU2.5V5 NEB; +Carvedilol12.5 MG PO; +IPRAT-ALBUT 0.5-3 ML NEB
[2024-06-11 06:48] LABS: BASOPHILS ABSOLUTE AUTO 0.04 K/mm3 (0.00-0.23); BASOPHILS PERCENT AUTO 0 % (0-2); EOSINOPHILS ABSOLUTE AUTO 0.07 K/mm3 (0.00-0.68); EOSINOPHILS PERCENT AUTO 1 % (0-6); Hematocrit 42.6 % (37.0-53.0); Hemoglobin 12.6 g/dL (13.5-17.5); IMMATURE GRAN ABSOLUTE AUTO 0.01 K/mm3 (0.00-0.10); IMMATURE GRAN PERCENT AUTO 0 % (0-1); LYMPHOCYTES ABSOLUTE AUTO 0.46 K/mm3 (0.84-5.20); LYMPHOCYTES PERCENT AUTO 5 % (21-46); MONOCYTES ABSOLUTE AUTO 0.28 K/mm3 (0.16-1.47); MONOCYTES PERCENT AUTO 3 % (4-13); Mean Corpuscular HGB Conc 29.6 g/dL (31.5-36.5); Mean Corpuscular Volume 91 fL (80-100); Mean Platelet Volume 9.3 fL (9.1-12.4); NEUTROPHILS ABSOLUTE AUTO 8.22 K/mm3 (1.96-9.15); NEUTROPHILS PERCENT AUTO 91 % (41-73); Platelet Count 189 K/mm3 (150-400); RDW Coefficient Variation 16.1 % (11.7-14.2); RDW Standard Deviation 54.1 fL (35.1-46.3); Red Blood Cell Count 4.67 M/mm3 (4.30-5.90); White Blood Cell Count 9.08 K/mm3 (4.00-11.30)
[2024-06-11 07:11] LABS: Base Excess Venous 5.5 mmol/L; Bicarbonate Venous 28.1 mmol/L (24.0-30.0); PCO2 Venous 56.4 mmHg (38-42); pH Blood Venous 7.35 (7.34-7.37)
[2024-06-11 07:15] LABS: Albumin, Blood 3.2 g/dL (3.4-5.0); Bilirubin, Total 0.6 mg/dL (0.1-1.0); Bun/Creatinine Ratio 13.5 (12.0-20.0); Calcium, Blood 8.9 mg/dL (8.5-10.1); Creatinine, Blood 1.92 mg/dL (0.60-1.20); Globulin, Blood 3.2 g/dL (2.2-4.0); Potassium, Blood 4.1 mmol/L (3.5-5.5); Total Protein, Blood 6.4 g/dL (6.4-8.2)
[2024-06-11 07:58] LABS: Influenza A, PCR NEGATIVE (NEGATIVE); Influenza B, PCR NEGATIVE (NEGATIVE); Resp Syncytial Virus, PCR NEGATIVE (NEGATIVE); SARS-Cov-2 (COVID-19) PCR, MMC NEGATIVE (NEGATIVE)
[2024-06-11] MEDS ORDERED: CefTRIAXone Sodium 1,000 MG in NS 50 ML IV ONE (08:00)
[2024-06-11] MEDS ORDERED: FLU VACC TS2024-25(6MOS UP)/PF 45 MCG/0.5 ML SYRINGE IM ONE ×2 (10:35→13:00)
[2024-06-11] MEDS ORDERED: Ondansetron 4 MG TAB PO PRN (10:35)
[2024-06-11 12:26] VITALS: BP 113/96
[2024-06-11 15:00] VITALS: BP 122/63
[2024-06-11] MEDS ORDERED: Acetaminophen 325 MG TABLET PO PRN (17:15)
--- NOTE | 2024-06-11 17:50 | NUR ---
PT REMAINS IN HOME CLOTHES AT THIS TIME. FLORENTIN GALO OFFERED TO BRING FRESH CLOTHES DUE TO HOME CLOTHES BEING SOILED. PT DECLINED TO REMOVE HOME CLOTHES AND USED A WIPE INSTEAD TO CLEAN OFF PANTS. DESPITE PT TEACHING, HE STILL DECLINES AT THIS TIME TO CHANGE CLOTHES.
--- NOTE | 2024-06-11 17:54 | NUR ---
SHIFT SUMMARY PT A&OX4 AND ANSWERS QUESTIONS APPROPRIATELY. PT ARRIVED ON UNIT VIA W/C AT AROUND 1130 AND IS ORIENTED TO THE ROOM AND UNIT. PT ON 4L O2 VIA N/C AND SWITCHED TO A CPAP FOR NOC AND SLEEP. VSS, NO COMPLAINTS OF CP/PRESSURE OR SOB. PT REPOSITIONED INDEPENDENTLY. PT SPENT MOST OF SHIFT SITTING UP IN RECLINER. NO ACUTE EVENTS AT THIS TIME. FALL PRECAUTIONS IN PLACE AND CALL LIGHT IN REACH.
[2024-06-11 20:03] VITALS: BP 119/58
[2024-06-11] MEDS ORDERED: Azithromycin 250 MG Tab PO SCH (21:00)
[2024-06-12 03:42] VITALS: BP 130/58
--- NOTE | 2024-06-12 04:16 | NUR ---
SHIFT SUMMARY PT IS A&O X4, ABLE TO MAKE HIS NEEDS KNOWN AND COOPERATIVE WITH CARE. PT SITTING AND RESTING T/O THE NIGHT HRS IN THE RECLINER. PT C/O FEELING COLD, TEMP.97.1. HEATING PAD AND BLANKETS OFFERED. O2 @3L, CPAP AT NIGHT HRS. PT DENIES SOB. PRN TYLENOL ADMINISTERED AT HS FOR RUQ PAIN. PT ABLE TO GET UP AND USE FWW WITH SBA. NO ACUTE EVENTS DURING THIS SHIFT. CALL LIGHT WITHIN REACH.
[2024-06-12 05:00] LABS: Hematocrit 39.9 % (37.0-53.0); Hemoglobin 11.6 g/dL (13.5-17.5); Mean Corpuscular HGB 26.7 pg (26.0-34.0); Mean Corpuscular HGB Conc 29.1 g/dL (31.5-36.5); Mean Corpuscular Volume 92 fL (80-100); Mean Platelet Volume 9.6 fL (9.1-12.4); Platelet Count 177 K/mm3 (150-400); RDW Coefficient Variation 16.2 % (11.7-14.2); RDW Standard Deviation 55.6 fL (35.1-46.3); Red Blood Cell Count 4.34 M/mm3 (4.30-5.90); White Blood Cell Count 19.81 K/mm3 (4.00-11.30)
[2024-06-12 05:19] LABS: Albumin, Blood 2.9 g/dL (3.4-5.0); Albumin/Globulin Ratio 0.8 (0.8-1.8); Bilirubin, Total 0.7 mg/dL (0.1-1.0); Bun/Creatinine Ratio 13.8 (12.0-20.0); Calcium, Blood 8.7 mg/dL (8.5-10.1); Creatinine, Blood 2.4 mg/dL (0.60-1.20); Globulin, Blood 3.5 g/dL (2.2-4.0); Magnesium, Blood 2.8 mg/dL (1.6-2.4); Potassium, Blood 4.1 mmol/L (3.5-5.5); Total Protein, Blood 6.4 g/dL (6.4-8.2)
[2024-06-12 05:30] LABS: BAND PERCENT MAN 22 % (0-8); BASOPHILS PERCENT MAN 0 % (0-2); EOSINOPHILS ABSOLUTE MAN 0.39 K/mm3 (0.00-0.68); EOSINOPHILS PERCENT MAN 2 % (0-6); LYMPHOCYTES ABSOLUTE MAN 2.77 K/mm3 (0.84-5.20); LYMPHOCYTES PERCENT MAN 14 % (21-46); MONOCYTES ABSOLUTE MAN 1.18 K/mm3 (0.16-1.47); MONOCYTES PERCENT MAN 6 % (4-13); NEUTROPHILS ABSOLUTE MAN 15.45 K/mm3 (1.96-9.15); SEG NEUTROPHILS PERCENT MAN 56 % (41-73); TOTAL CELLS COUNTED 100
[2024-06-12 07:25] VITALS: BP 142/62
[2024-06-12] MEDS ORDERED: Enoxaparin 40 MG/0.4 ML SYR SC SCH (09:00)
[2024-06-12] MEDS ORDERED: Enoxaparin 30 MG/0.3 ML SYR SC SCH (09:00)
[2024-06-12] MEDS ORDERED: Proventil HFA 90 mcg INH (10:26)
[2024-06-12] MEDS ORDERED: AMLO10 PO (10:27)
[2024-06-12] MEDS ORDERED: ATORVASTATIN CA80 M1 PO (10:28)
[2024-06-12] MEDS ORDERED: COREG25 MG PO (10:29)
[2024-06-12] MEDS ORDERED: Polyethylene Glycol 3350 17 gm PO PRN (10:30)
[2024-06-12] MEDS ORDERED: CLOP75 PO (10:30)
[2024-06-12] MEDS ORDERED: FLUOXETINE HCL20 M1 PO (10:31)
[2024-06-12] MEDS ORDERED: FUROSEMIDE40 MG PO (10:32)
[2024-06-12] MEDS ORDERED: PANT40 PO (10:34)
[2024-06-12] MEDS ORDERED: Albuterol HFA200 ACT/6.7 GM INH INH PRN (10:35)
[2024-06-12] MEDS ORDERED: MIRALAX11910 PO (10:35)
[2024-06-12] MEDS ORDERED: KLOR-CON 1010 ME1 PO (10:36)
[2024-06-12] MEDS ORDERED: FLUoxetine HCL 20 MG CAP PO ONE (15:30)
[2024-06-12 16:48] VITALS: BP 162/68
[2024-06-12] MEDS ORDERED: Carvedilol 6.25 MG Tab PO SCH (17:00)
--- NOTE | 2024-06-12 19:06 | NUR ---
SHIFT SUMMARY PT A&OX4. PT ADMITTED DUE TO ACUTE RESPIRATORY FAILURE. PT REPORTS NO PAIN. PT REPORTS SOB ON EXERTION. PT ON 3L OF O2 VIA N/C. PT REPORTS THAT HIS BASELINE. PT WAS SITTING IN CHAIR FOR MAJORITY OF SHIFT. PT HAD HIS HOME MEDS BROUGHT IN TO BE RECONCILED, DR. HAINES NOTIFIED. PT WALKS WITH FWW AND USES BSC. PT CALLS APPROPRIATELY. CALL LIGHT IN REACH. NO ACUTE CHANGES DURING SHIFT.
[2024-06-12 19:22] VITALS: BP 168/82
[2024-06-13 02:20] VITALS: BP 171/72
[2024-06-13 02:23] VITALS: BP 157/77
--- NOTE | 2024-06-13 03:35 | NUR ---
SHIFT SUMMARY PT IS A&O X4, ABLE TO MAKE HIS NEEDS KNOWN, AND COOPERATIVE WITH CARE. PT C/O OF MILD ANXIETY AND MILD OVERALL BODY ACHES AT HS. PRN PO TYLENOL ADMINISTERED ORDERED. PT REPORTS GOOD EFFECTIVNESS. CONTINUOUS PULSE OX, O2 SAT'S >97% @3L VIA NASAL CANNULA. PT WEARING C-PAP DURING THE NIGHT HRS. PT CONTINUES IN SITTING POSITION, SWITCHING FROM THE RECLINER TO THE SIDE OF THE BED. DID NOT LAY DOWN IN BED TO REST. NO ACUTE EVENTS DURING THIS SHIFT. CALL LIGHT WITHIN REACH. URINAL BY THE BEDSIDE. PT REPORTS AWAITING FOR A POSSIBLE D/C TODAY.
[2024-06-13 05:19] LABS: Hemoglobin 12.4 g/dL (13.5-17.5); Mean Corpuscular HGB Conc 29.5 g/dL (31.5-36.5); Mean Corpuscular Volume 92 fL (80-100); Mean Platelet Volume 9.6 fL (9.1-12.4); Platelet Count 181 K/mm3 (150-400); RDW Coefficient Variation 16.4 % (11.7-14.2); RDW Standard Deviation 55.8 fL (35.1-46.3); Red Blood Cell Count 4.59 M/mm3 (4.30-5.90); White Blood Cell Count 15.45 K/mm3 (4.00-11.30)
[2024-06-13 05:41] LABS: BAND PERCENT MAN 14 % (0-8); BASOPHILS PERCENT MAN 0 % (0-2); EOSINOPHILS PERCENT MAN 2 % (0-6); LYMPHOCYTES ABSOLUTE MAN 1.08 K/mm3 (0.84-5.20); LYMPHOCYTES PERCENT MAN 7 % (21-46); MONOCYTES ABSOLUTE MAN 0.61 K/mm3 (0.16-1.47); MONOCYTES PERCENT MAN 4 % (4-13); NEUTROPHILS ABSOLUTE MAN 13.44 K/mm3 (1.96-9.15); SEG NEUTROPHILS PERCENT MAN 73 % (41-73); TOTAL CELLS COUNTED 100
[2024-06-13 05:56] LABS: Albumin, Blood 3.2 g/dL (3.4-5.0); Albumin/Globulin Ratio 0.9 (0.8-1.8); Bilirubin, Total 0.6 mg/dL (0.1-1.0); Calcium, Blood 9.4 mg/dL (8.5-10.1); Creatinine, Blood 2.31 mg/dL (0.60-1.20); Globulin, Blood 3.7 g/dL (2.2-4.0); Potassium, Blood 3.9 mmol/L (3.5-5.5); Total Protein, Blood 6.9 g/dL (6.4-8.2)
[2024-06-13] MEDS ORDERED: Pantoprazole Sodium 40 MG Tab PO SCH (06:00)
[2024-06-13 07:43] VITALS: BP 149/81
[2024-06-13] MEDS ORDERED: FLUoxetine HCL 20 MG CAP PO SCH (09:00)
[2024-06-13] MEDS ORDERED: Atorvastatin 40 MG Tab PO SCH (09:00)
[2024-06-13] MEDS ORDERED: Carvedilol 6.25 MG Tab PO SCH (09:00)
[2024-06-13] MEDS ORDERED: Clopidogrel Bisulfate 75 MG Tab PO SCH (09:00)
[2024-06-13] MEDS ORDERED: Potassium Chloride 10 Meq Tablet SA PO SCH (09:00)
[2024-06-13] MEDS ORDERED: AmLODIPine Besylate 5 MG Tab PO SCH (09:00)
[2024-06-13] MEDS ORDERED: Furosemide 40 MG Tab PO SCH (09:00)
[2024-06-13] MEDS ORDERED: LOSARTAN POTASS25 M2 PO (12:44)
[2024-06-13] MEDS ORDERED: AZIT250 PO (13:45)
--- NOTE | 2024-06-13 14:59 | NUR ---
DISCHARGE SUMMARY: PT DOISCHARGED HOME TODAY. ROBBIN BROUGHT PORTABLE O2 TANK FOR PT TO GO HOME WITH. PT EDUCATED ON DISCHARGE MEDICATIONS AND INSTRUCTIONS. PT V/U. PT ESCORTED TO POV WITH NEPHEW NAMITA. BELONGINGS INCLUDING HOME MEDICATIONS LOCKED IN THE DRAWER WAS SENT HOME WITH PT. PT ABLE TO SELF TX TO VEHICLE WITHOUT DIFFICULTY.
== END 2024-06-13 14:38 | disposition home health service (06) ==
LOC: ER 06:22 → MEDS 06:23
PROVIDERS: Emergency Medicine; Family Medicine; ADMIT Internal Medicine
DX: J96.22 Acute and chronic respiratory failure with hypercapnia (principal); J96.21 Acute and chronic respiratory failure with hypoxia; I13.0 Hypertensive heart and chronic kidney disease with heart failure and stage 1 through stage 4 chronic kidney disease, or unspecified chronic kidney disease; N18.32 Chronic kidney disease, stage 3b; I50.32 Chronic diastolic (congestive) heart failure; J44.1 Chronic obstructive pulmonary disease with (acute) exacerbation; I25.10 Atherosclerotic heart disease of native coronary artery without angina pectoris; G47.33 Obstructive sleep apnea (adult) (pediatric); E78.5 Hyperlipidemia, unspecified; K59.09 Other constipation; F32.A Depression, unspecified; Z95.5 Presence of coronary angioplasty implant and graft; Z87.891 Personal history of nicotine dependence; Z79.82 Long term (current) use of aspirin; Z79.899 Other long term (current) drug therapy
CPT/HCPCS: 0241U; 36415; 71045; 80053; 82803; 83735; 83880; 84484; 85025; 93005; 93010; 94660; 94762; 96365; 96372; 99285-25; A9270; G0378; J0696; J1650

== ENCOUNTER 2024-06-15 07:24 | Inpatient (IN) | payer OTHER, MEDICARE ==
[~2024-06-15] VITALS: Ht 180.3 cm; Wt 108.9 kg
[~2024-06-15 07:24] MED LIST changes: +AMLO10 PO; +ATORVASTATIN CA80 M1 PO; +AZIT250 PO; +COREG25 MG PO; +FLUOXETINE HCL20 M1 PO; +FUROSEMIDE40 MG PO; +KLOR-CON 1010 ME1 PO; +LOSARTAN POTASS25 M2 PO; +MIRALAX11910 PO; +Proventil HFA 90 mcg INH
[2024-06-15] MEDS ORDERED: Ipratropium/Albuterol SulF 2.5-0.5MG/3 ML Amp INH ONE (08:05)
[2024-06-15] MEDS ORDERED: Ondansetron HCl 2 MG / ML 2ML Vial IV ONE (08:05)
[2024-06-15 08:39] LABS: BASOPHILS ABSOLUTE AUTO 0.04 K/mm3 (0.00-0.23); BASOPHILS PERCENT AUTO 1 % (0-2); EOSINOPHILS ABSOLUTE AUTO 0.13 K/mm3 (0.00-0.68); EOSINOPHILS PERCENT AUTO 2 % (0-6); Hematocrit 43.3 % (37.0-53.0); Hemoglobin 12.5 g/dL (13.5-17.5); IMMATURE GRAN ABSOLUTE AUTO 0.06 K/mm3 (0.00-0.10); IMMATURE GRAN PERCENT AUTO 1 % (0-1); LYMPHOCYTES ABSOLUTE AUTO 0.84 K/mm3 (0.84-5.20); LYMPHOCYTES PERCENT AUTO 10 % (21-46); MONOCYTES ABSOLUTE AUTO 0.45 K/mm3 (0.16-1.47); MONOCYTES PERCENT AUTO 5 % (4-13); Mean Corpuscular HGB 26.9 pg (26.0-34.0); Mean Corpuscular HGB Conc 28.9 g/dL (31.5-36.5); Mean Corpuscular Volume 93 fL (80-100); Mean Platelet Volume 9.1 fL (9.1-12.4); NEUTROPHILS ABSOLUTE AUTO 6.78 K/mm3 (1.96-9.15); NEUTROPHILS PERCENT AUTO 82 % (41-73); Platelet Count 190 K/mm3 (150-400); RDW Standard Deviation 54.5 fL (35.1-46.3); Red Blood Cell Count 4.65 M/mm3 (4.30-5.90)
[2024-06-15 08:52] LABS: Albumin, Blood 3.2 g/dL (3.4-5.0); Albumin/Globulin Ratio 0.8 (0.8-1.8); Bilirubin, Total 0.7 mg/dL (0.1-1.0); Bun/Creatinine Ratio 20.3 (12.0-20.0); Calcium, Blood 9.2 mg/dL (8.5-10.1); Creatinine, Blood 2.31 mg/dL (0.60-1.20); Globulin, Blood 4.1 g/dL (2.2-4.0); Magnesium, Blood 2.8 mg/dL (1.6-2.4); Potassium, Blood 4.4 mmol/L (3.5-5.5); Total Protein, Blood 7.3 g/dL (6.4-8.2)
[2024-06-15] MEDS ORDERED: Acetaminophen 500 MG Tab PO ONE (09:25)
[2024-06-15 10:22] LABS: SARS-Cov-2 (COVID-19) PCR, MMC NEGATIVE (NEGATIVE)
[2024-06-15] MEDS ORDERED: Doxycycline Hyclate 100 MG TAB PO ONE (10:25)
[2024-06-15] MEDS ORDERED: CefTRIAXone Sodium 1,000 MG in NS 50 ML IV ONE (10:25)
[2024-06-15] MEDS ORDERED: FLU VACC TS2024-25(6MOS UP)/PF 45 MCG/0.5 ML SYRINGE IM ONE (11:40)
[2024-06-15] MEDS ORDERED: Furosemide 10 MG / ML 2ML Vial IV SCH (12:00)
[2024-06-15 13:52] VITALS: BP 178/77
--- NOTE | 2024-06-15 14:09 | NUR ---
PT ARRIVED IN ROOM AT AROUND 1350 VIA GURNEY AND WAS TRANSFERED VIA SLIDESHEET ONTO BED. PT ABLE TO STAND WITH A SBA. DISCUSSED W/ PT AND FAMILY REGARDING POSSIBLE REHAB FOR PT. FAMILY AND PT VOICES THEY WOULD LIKE PT TO GO TO [facility], NOT TO [facility]. WILL DISCUSS W/ CARE MANAGEMENT AND
[2024-06-15] MEDS ORDERED: HydrALAZINE HCl 20 MG / ML 1ML Vial IV PRN (15:20)
[2024-06-15] MEDS ORDERED: Ipratropium/Albuterol SulF 2.5-0.5MG/3 ML Amp INH PRN (16:10)
--- NOTE | 2024-06-15 17:57 | NUR ---
SHIFT SUMMARY PT A&OX4 AND ANSWERS QUESTIONS APPROPRIATELY. PT ARRIVED ON UNIT AROUND 1350 AND WAS ORIENTED TO THE ROOM AND UNIT. PT EXPERIENCES SOME SOB WITH EXCERTION. VSS, NO COMPLAINTS OF CP/PRESSURE OR SOB. PT ON TELEMETRY RUNNING SINUS W/ A BBB, 1ST DEGREE, AND PACS. NO ACUTE EVENTS AT THIS TIME. PT LEFT IN A POSITION OF SAFETY WITH FALL PRECAUTIONS IN PLACE AND CALL LIGHT IN REACH. REPOSITIONED Q2HRS
[2024-06-15 19:21] VITALS: BP 172/90
[2024-06-15] MEDS ORDERED: Doxycycline Hyclate 100 MG TAB PO SCH (21:00)
[2024-06-15] MEDS ORDERED: Lactobacil 2-S.Thermo-Bifido 1 1 Cap PO SCH (21:00)
[2024-06-16 02:00] VITALS: BP 156/82
[2024-06-16] MEDS ORDERED: Prochlorperazine Edisylate 10 mg Vial IV PRN (02:05)
[2024-06-16 05:06] LABS: BASOPHILS ABSOLUTE AUTO 0.04 K/mm3 (0.00-0.23); BASOPHILS PERCENT AUTO 1 % (0-2); EOSINOPHILS ABSOLUTE AUTO 0.17 K/mm3 (0.00-0.68); EOSINOPHILS PERCENT AUTO 3 % (0-6); Hematocrit 39.8 % (37.0-53.0); Hemoglobin 11.6 g/dL (13.5-17.5); IMMATURE GRAN ABSOLUTE AUTO 0.04 K/mm3 (0.00-0.10); IMMATURE GRAN PERCENT AUTO 1 % (0-1); LYMPHOCYTES ABSOLUTE AUTO 0.71 K/mm3 (0.84-5.20); LYMPHOCYTES PERCENT AUTO 11 % (21-46); MONOCYTES ABSOLUTE AUTO 0.68 K/mm3 (0.16-1.47); MONOCYTES PERCENT AUTO 10 % (4-13); Mean Corpuscular HGB 26.6 pg (26.0-34.0); Mean Corpuscular HGB Conc 29.1 g/dL (31.5-36.5); Mean Corpuscular Volume 91 fL (80-100); Mean Platelet Volume 9.1 fL (9.1-12.4); NEUTROPHILS ABSOLUTE AUTO 5.05 K/mm3 (1.96-9.15); NEUTROPHILS PERCENT AUTO 76 % (41-73); Platelet Count 205 K/mm3 (150-400); RDW Coefficient Variation 15.7 % (11.7-14.2); RDW Standard Deviation 52.9 fL (35.1-46.3); Red Blood Cell Count 4.36 M/mm3 (4.30-5.90); White Blood Cell Count 6.69 K/mm3 (4.00-11.30)
[2024-06-16 05:41] LABS: Bun/Creatinine Ratio 22.3 (12.0-20.0); Calcium, Blood 9.4 mg/dL (8.5-10.1); Creatinine, Blood 2.15 mg/dL (0.60-1.20)
--- NOTE | 2024-06-16 06:40 | NUR ---
Shift Summary Pt had emesis near the start of the shift after he ate dinner. He stated that he hasn't been able to keep a meal down d/t emesis for 24 hours although he admits he is forgetful and is not sure. I called the hospitalist who said he would review the chart, no new orders. Later that night pt had emesis without a meal, I called the hospitalist who ordered 10mg Compazine IV q6 PRN. I gave one dose. Pt's AM lab came back with a critical glucose of 48. I encouraged applejuice and chris crackers, pt quickly drank 2 applejuices and 2 crackers and then started sipping ensure. He states no nausea this AM but he is feeling light headed. I called the hospitalist who said as long as he keeps the food down then no new orders. Follow up PoC glucose 20 minutes later was 80. Pt is refusing cont. biox and refusal is signed and in the chart. He slept sitting upright in a recliner with his CPAP on. On tele running SR w/ a BBB. Pt is AOx3 with some foregetfulness.
[2024-06-16 07:42] VITALS: BP 177/85
[2024-06-16 07:43] VITALS: BP 172/77
[2024-06-16] MEDS ORDERED: Enoxaparin 30 MG/0.3 ML SYR SC SCH (09:00)
[2024-06-16] MEDS ORDERED: CefTRIAXone Sodium 1,000 MG in NS 100 ML IV SCH (10:00)
[2024-06-16] MEDS ORDERED: TOLTERODINE TART2 MG PO (11:18)
--- NOTE | 2024-06-16 12:09 | NUR ---
PHYSCIAN NOTIFED D/T TELEMENTRY CALLED AND STATED PT WAS HAVING RUNS OF BIGEMINY. PHYSICAN GAVE TELEPHONE ORDER FOR MAGNESIUM LAB TO BE DRAWN AND TO NOTIFY PHYSICAN IF LAB IS LOW.
[2024-06-16] MEDS ORDERED: Acetaminophen 325 MG TABLET PO PRN (14:15)
[2024-06-16] MEDS ORDERED: Polyethylene Glycol 3350 17 gm PO PRN (14:25)
[2024-06-16 15:05] VITALS: BP 156/67
[2024-06-16 15:57] LABS: Adenovirus Not Detected (NOT DETECT); Coronavirus 229E Not Detected (NOT DETECT); Coronavirus HKU1 Not Detected (NOT DETECT); Coronavirus NL63 Not Detected (NOT DETECT)
[2024-06-16 15:58] LABS: Bordetella pertussis Not Detected (NOT DETECT); Chlamydophila pneumoniae Not Detected (NOT DETECT); Coronavirus OC43 Not Detected (NOT DETECT); Human Metapneumovirus Not Detected (NOT DETECT); Human Rhinovirus/Enterovirus Not Detected (NOT DETECT); Influenza A/2009-H1 Not Detected (NOT DETECT); Influenza A/H1 Not Detected (NOT DETECT); Influenza A/H3 Not Detected (NOT DETECT); Influenza B Not Detected (NOT DETECT); Mycoplasma pneumoniae Not Detected (NOT DETECT); Parainfluenza Virus 1 Not Detected (NOT DETECT); Parainfluenza Virus 2 Not Detected (NOT DETECT); Parainfluenza Virus 3 Not Detected (NOT DETECT); Parainfluenza Virus 4 Not Detected (NOT DETECT); Respiratory Syncytial Virus Not Detected (NOT DETECT); SARS-Cov-2 (COVID-19), BioFire Not Detected (NOT DETECT)
--- NOTE | 2024-06-16 17:08 | NUR ---
SHIFT SUMMARY PT CONT LEVEL OF CARE WITH NO ACUTE CHANGES NOTED. PT IS A&OX4 AND A SBA WITH AMBULATION. PT NOTED TO BE CONT/INCONT OF BLADDER THIS SHIFT. PHYSICAN WANTED TO MONITOR BLOOD GLUCOSE THIS SHIFT DT CRITICAL GLUCOSE LEVEL WITH AM LABS. PT HAS HAD EMISIS X1 THIS SHIFT AFTER WORKING WITH SPEECH THERAPY. PT A CONSULT WITH GI AND AWAITING GI PHYSICIAN DR MICHAUD TO SEE PT CALL WAS PLACED THIS MORNING AND MESSAGE WAS LEFT WITH A NURSE. PT NOTED TO SLEEP INTERMITTENLY THROUGH THIS SHIFT WITH CPAP IN PLACE.
[2024-06-16 19:23] VITALS: BP 145/78
[2024-06-16] MEDS ORDERED: Carvedilol 6.25 MG Tab PO SCH (21:00)
[2024-06-17 02:55] VITALS: BP 141/64
[2024-06-17 05:10] LABS: BASOPHILS ABSOLUTE AUTO 0.06 K/mm3 (0.00-0.23); BASOPHILS PERCENT AUTO 1 % (0-2); EOSINOPHILS ABSOLUTE AUTO 0.21 K/mm3 (0.00-0.68); EOSINOPHILS PERCENT AUTO 4 % (0-6); Hematocrit 39.3 % (37.0-53.0); Hemoglobin 11.5 g/dL (13.5-17.5); IMMATURE GRAN ABSOLUTE AUTO 0.09 K/mm3 (0.00-0.10); IMMATURE GRAN PERCENT AUTO 2 % (0-1); LYMPHOCYTES ABSOLUTE AUTO 0.79 K/mm3 (0.84-5.20); LYMPHOCYTES PERCENT AUTO 14 % (21-46); MONOCYTES ABSOLUTE AUTO 0.82 K/mm3 (0.16-1.47); MONOCYTES PERCENT AUTO 15 % (4-13); Mean Corpuscular HGB 26.8 pg (26.0-34.0); Mean Corpuscular HGB Conc 29.3 g/dL (31.5-36.5); Mean Corpuscular Volume 92 fL (80-100); Mean Platelet Volume 9.3 fL (9.1-12.4); NEUTROPHILS PERCENT AUTO 65 % (41-73); Platelet Count 199 K/mm3 (150-400); RDW Coefficient Variation 15.9 % (11.7-14.2); RDW Standard Deviation 53.6 fL (35.1-46.3); Red Blood Cell Count 4.29 M/mm3 (4.30-5.90); White Blood Cell Count 5.67 K/mm3 (4.00-11.30)
--- NOTE | 2024-06-17 05:44 | NUR ---
Shift Summary Pt has been NPO except for water since 0000 per MD order in anticipation of EGD today. No emesis this shift. Blood glucose checks d/c'd per order instructions. Pt remained in the chair t/o most of this shift, he wore his CPAP w/ 4L bleed in t/o most of the night. Per tele, some atrial escape beats with temporary HR in the upper 30's while pt is asleep. Per report MD is aware of bradycardia while pt is asleep and asked us to call of it happens and is sustained while pt is awake. No acute changes this shift.
[2024-06-17 05:56] LABS: Bun/Creatinine Ratio 22.3 (12.0-20.0); Calcium, Blood 9.7 mg/dL (8.5-10.1); Creatinine, Blood 2.24 mg/dL (0.60-1.20); Potassium, Blood 3.9 mmol/L (3.5-5.5)
[2024-06-17] MEDS ORDERED: Pantoprazole Sodium 40 MG Tab PO SCH (06:00)
[2024-06-17 06:59] VITALS: BP 145/57
[2024-06-17] MEDS ORDERED: FLUoxetine HCL 20 MG CAP PO SCH (09:00)
[2024-06-17] MEDS ORDERED: Atorvastatin 40 MG Tab PO SCH (09:00)
[2024-06-17] MEDS ORDERED: Clopidogrel Bisulfate 75 MG Tab PO SCH (09:00)
[2024-06-17] MEDS ORDERED: NS 250 ML IV PRN (09:15)
[2024-06-17] MEDS ORDERED: Lactated Ringer's 1,000 ML IV SCH (10:25)
[2024-06-17] MEDS ORDERED: Lidocaine HCl 4% 5 ML SDA ONE (13:30)
[2024-06-17] MEDS ORDERED: Ipratropium/Albuterol SulF 2.5-0.5MG/3 ML Amp ONE (13:31)
[2024-06-17 13:32] VITALS: BP 141/70
[2024-06-17] MEDS ORDERED: Lidocaine HCl 4% 5 ML SDA INH ONE (13:35)
--- NOTE | 2024-06-17 13:55 | NUR ---
06/17/24 1355 Shana Patrick WITH DEANDRA HERNANDEZ CRNA; SEE ANESTHESIA RECORDS.
[2024-06-17] MEDS ORDERED: propofoL 20 ML IV ONE (14:20)
[2024-06-17 15:25] VITALS: BP 148/74
--- NOTE | 2024-06-17 17:20 | NUR ---
SHIFT SUMMARY PT RESTING QUIETLY IN CHAIR AT BS DURING SHIFT REPORT. WOKE EASILY, BUT NOTTAWASEPPI POTAWATOMI. PT NPO FOR EGD EXCEPT WATER AND ICE, CHANGING TO COMPLETE NPO AT 10:00, PER ORDERS. PT CONTINENT AND INCONTINENT OF BOWEL AND BLADDER TODAY. PT CONTINENT PRIOR TO PROCEDURE, BUT PER POST OP REPORT, PT INCONTINENT DURING PROCEDURE. PT CLEANED AND CHANGED AFTER EGD. DR ADAMS IN TO SEE PT THIS AM, JUST PRIOR TO EGD, EXPLAINING PLAN OF CARE. PT REMAINED IN CHAIR UNTIL BEING TAKEN DOWN FOR EGD. PT RETURNED DROWSY; SLIDE TX TO BED. PT REQUESTING WARM BLANKETS; GIVEN. PT HAS RESTED QUIETLY SINCE RETURNING THIS AFTERNOON. PT'S FRIEND HERE WHEN PT RETURNED. FRIENDS PHONE NUMBER TAKEN TO GIVE TO DR MICHAUD TO CALL FOR EGD RESULTS. DR ADAMS UPDATED ON PT'S RETURN FROM PROCEDURE WELL YEAST IN ABD SKIN FOLDS; NEW ORDERS PLACED FOR NYSTATIN. PALLIATIVE CARE CONSULT ADDED WELL. PT NOW ON CL DIET FOR DINNER. BED ALARM ON FOR SAFETY. CALL LT IN REACH.
[2024-06-17] MEDS ORDERED: Lansoprazole 15 MG TAB.RAP.DR PO SCH (18:00)
[2024-06-17 20:18] VITALS: BP 149/69
[2024-06-17] MEDS ORDERED: Miconazole Nitrate 2% 85 GM PWD TOP SCH (21:00)
[2024-06-18] MEDS ORDERED: NS 1,000 ML IV ONE (03:55)
[2024-06-18 04:36] VITALS: BP 121/98
[2024-06-18 04:48] LABS: BASOPHILS ABSOLUTE AUTO 0.08 K/mm3 (0.00-0.23); BASOPHILS PERCENT AUTO 1 % (0-2); EOSINOPHILS PERCENT AUTO 3 % (0-6); Hematocrit 43.2 % (37.0-53.0); Hemoglobin 12.3 g/dL (13.5-17.5); IMMATURE GRAN ABSOLUTE AUTO 0.15 K/mm3 (0.00-0.10); IMMATURE GRAN PERCENT AUTO 2 % (0-1); LYMPHOCYTES ABSOLUTE AUTO 0.73 K/mm3 (0.84-5.20); LYMPHOCYTES PERCENT AUTO 9 % (21-46); MONOCYTES ABSOLUTE AUTO 0.72 K/mm3 (0.16-1.47); MONOCYTES PERCENT AUTO 9 % (4-13); Mean Corpuscular HGB 26.9 pg (26.0-34.0); Mean Corpuscular HGB Conc 28.5 g/dL (31.5-36.5); Mean Corpuscular Volume 95 fL (80-100); Mean Platelet Volume 8.9 fL (9.1-12.4); NEUTROPHILS ABSOLUTE AUTO 6.09 K/mm3 (1.96-9.15); NEUTROPHILS PERCENT AUTO 76 % (41-73); Platelet Count 210 K/mm3 (150-400); RDW Coefficient Variation 15.8 % (11.7-14.2); RDW Standard Deviation 54.4 fL (35.1-46.3); Red Blood Cell Count 4.57 M/mm3 (4.30-5.90); White Blood Cell Count 7.97 K/mm3 (4.00-11.30)
[2024-06-18 05:10] LABS: Bun/Creatinine Ratio 21.8 (12.0-20.0); Calcium, Blood 9.7 mg/dL (8.5-10.1); Creatinine, Blood 2.11 mg/dL (0.60-1.20)
--- NOTE | 2024-06-18 05:37 | NUR ---
LUMBER MATERIAL HANDLER SUMMARY RESULTS FROM EGD WERE NOT AVAILABLE TO NURSING OVERNIGHT, BUT PT CONTINUES TO HAVE THE SAME PROBLEM, POSSIBLY EVEN GETTING WORSE. WE CRUSHED HIS PILLS AT BEDTIME BUT AFTER ABOUT 25-30 MINUTES HE VOMITED THEM UP. HE DOES NOT FEEL NAUSEATED BEFORE HE VOMITS. HE ALSO VOMITED AFTER DRINKING SOME WATER AND WAS ABLE TO RIP OFF HIS HOME CPAP MASK AND USED HIS CPAP MASK LIKE A AN EMESIS BASIN. UNCLEAR HOW MUCH HE HAS ASPIRATED BUT HE REMAINS ON THE SAME AMOUNT OF OXYGEN (3L) AND WEVE KEPT HIM ON CONTINUOUS SPO2 MONITORING THROUGHOUT THE NIGHT. HE HAS BEEN A 2 ASSIST TO THE BSC BECAUSE OF INCREASED WEAKNESS. NOTIFIED DR VERONICA WHO RECOMMENDS STRICT NPO UNTIL HE CAN BE SEEN BY HIS DAY SHIFT DOCTOR, WHO CAN USE THE RESULTS OF THE EGD TO EXPLAIN OPTIONS TO PATIENT. IN THE MEANTIME, ORDERS NS @75 X 1 LITER WHILE WE ARE WAITING TO CLARIFY SENIOR CARE PLAN OF CARE.
[2024-06-18 07:23] VITALS: BP 139/61
[2024-06-18] MEDS ORDERED: NS 1,000 ML IV SCH (08:35)
[2024-06-18] MEDS ORDERED: Lactated Ringer's 1,000 ML IV SCH (08:35)
[2024-06-18] MEDS ORDERED: Aspirin 81 MG Chew PO SCH (09:00)
[2024-06-18] MEDS ORDERED: Doxycycline Hyclate 100 MG in Dextrose 5% 250 ML IV SCH (10:00)
--- NOTE | 2024-06-18 10:39 | NUR ---
UPDATE CODE STATUS TO DNR NEW POLST FILLED OUT WITH PATIENT TO REFLECT DNR/SELECTIVE MEDICAL TREATMENTS. WHEN ASKED ABOUT INTUBATION AND FEEDING TUBE, HE RESPONDED WITH "WELL THAT'S NO LIFE AT ALL." THIS PC RN OBTAINED PERMISSION FROM PT TO CALL HIS HEALTH CARE PROXY/NEPHEW, NAMITA TO PROVIDE HEALTH UPDATES. PROVIDER ENTERED ROOM DURING THIS PC VISIT. PROVIDER ASKED PT ABOUT A SHORT TERM (APX 3 MTH) PEG TUBE D/T ESOPHAGEAL STRICTURE, PT ASKED TO ANSWER TUBE PLACEMENT LATER. PT IS HYPERFOCUSED ON DRINKING WATER OR CHEWING ON ICE CHIPS. RISKS HAVE BEEN EXPLAINED TO PT MULTIPULE TIMES. THIS PC RN PROVIDED ORAL SWAB TO WET HIS MOUTH. ATTEMPTED TO REACH NEPHEW, NAMITA BY PHONE. NAMITA'S VM HAS NOT BEEN SET UP. PT REPORTS NAMITA IS VERY CIRCLE.
--- NOTE | 2024-06-18 10:56 | NUR ---
COMPLETED POLST FORM FAXED TO [place] [facility], [facility]. COPY AND ORIGINAL PLACED ON PT CHART. COPY SENT TO [facility] FOR SCANNING TO CHART.
--- NOTE | 2024-06-18 15:55 | NUR ---
SHIFT SUMMARY PT SLEEPING IN RECLINER CHAIR WITH CPAP ON DURING SHIFT REPORT. PT MADE STRICT NPO ON NOC SHIFT AFTER VOMITING CRUSHED MEDS IN APPLESAUCE WELL A SIP OF WATER. PT UNABLE TO TOLERATE ANY PO INTAKE AT ALL. DR ADAMS AND PALLIATIVE CARE NOTIFIED AND UPDATED ON PT STATUS. NEW ORDERS PLACED. PALLIATIVE CARE RN TO TO TALK WITH PT AND LATER DR ADAMS WELL. NEW ORDERS PLACED. PT NOW DNR. PALLIATIVE CARE RN ATTEMPTED SEVERAL TIMES TO SPEAK WITH NEPHEW, BUT UNABLE TO REACH HIM. NEPHEW, NAMITA BELL, HERE THIS AFTERNOON; DR ADAMS ABLE TO MEET WITH HIM AND DISCUSS PLAN OF CARE. PT WAS RECEIVING IVF'S AND IV ABX, BUT LOST IV ACCESS TRYING TO GET UP FROM BSC WITHOUT ASSIST. BN ATTEMPTED TO PLACE NEW IV; UNSUCCESSFUL. CHRG RN NOTIFIED AND WILL ATTEMPT. PT REMAINS IN CHAIR AT . PT DOES NOT WANT TO REST IN BED AT ALL. CHAIR ALARM IN PLACE. CALL LT IN REACH.
[2024-06-18 19:17] VITALS: BP 123/65
[2024-06-19] MEDS ORDERED: Morphine Sulfate 20 MG/1ML 1 ML Oral Syringe PO PRN (04:00)
--- NOTE | 2024-06-19 06:35 | NUR ---
TRANSITION TO COMFORT CARE AND SHIFT SUMMARY AT START OF SHIFT MR YATES WAS ON 3L OF O2. THE SHIFT PROGRESSED HIS OXYGEN REQUIRMENT STARTED GRADUALLY INCREASING UNTIL HE WAS REQUIRING 15L WITH HIS CPAP. RESPIRATORY THERAPY ASSISTED WITH INTERVENTIONS. EVENTUALLY PT HAD BECOME CPAP DEPENDENT, EVEN WHILE AWAKE. WITHOUT HIS CPAP, HE WOULD DESAT TO THE LOW 80S. HE KEPT BEGGING FOR WATER AND FOR HIS CPAP MASK TO BE REMOVED AND WE WERE UNABLE TO ALLOW THIS FOR HIS SAFETY. HE CALLED ME IN THE ROOM AT 0030 AND, WHILE ORIENTED X 4, HE SAID HE HAD MADE A BIG MISTAKE DURING THE DAY WHEN HE HAD REFUSED HOSPICE/COMFORT CARE AND AGREED TO A FEEDING TUBE. HE SAID HE HAD WANTED TO TRY THE FEEDING TUBE FOR HIS NEPHEW AND THAT HE DIDNT WANT ANYONE TO THINK HE HAD "GIVEN UP" BUT THAT HE WAS READY TO START COMFORT CARE AND THAT HE DOESNT WANT A FEEDING TUBE ANYMORE. WE HAD A LONG CONVERSATION ABOUT HIS OPTIONS. CHICO GALO, CLARIBEL INTERIANO WAS WITNESS TO THIS CONVERSATION. PT WANTED ME TO CALL HIS NEPHEW AND CALL THE DOCTOR AND CHANGE HIS STATUS BECAUSE HE SAID "I CANT DO THIS ANYMORE". I ENCOURAGED HIM TO WAIT UNTIL THE MORNING AND DISCUSS THIS WITH HIS NEPHEW AND HIS DOCTOR AND HE ORIGINALLY AGREED TO THIS PLAN. BUT AFTER A COUPLE MORE HOURS OF SUFFERING, HE KEPT CALLING ME IN THE ROOM AND SAYING, "PLEASE, I CANT BREATHE, I NEED TO DRINK WATER, I NEED MY MASK OFF". "I CANT DO THIS ANYMORE". I CALLED HIS NEPHEW 4 TIMES WITH NO RESPONSES. PT WAS VERY LUCID AND ANSWERED ALL ORIENTATION QUESTIONS APPROPRIATELY AND WAS ADAMENT THAT HE WAS READY TO "CALL IT QUITS". I CALLED DR VERONICA, WHO AGREED TO MAKE HIM COMFORT CARE PER HIS WISHES. WE GAVE HIM A DOSE OF ROXANOL FOR HIS AIR HUNGER AND ALLOWED HIM TO REMOVE HIS CPAP. JOSE LEFT HIM ON 3L O2 SO THAT HE MAY BE LUCID ENOUGH TO SPEAK WITH HIS NEPHEW TODAY. HE SAYS HE IS WORRIED ABOUT WHAT HIS NEPHEW WILL THINK. FELIXMARKIE LET HIM HAVE A FEW SIPS OF WATER AND HE SPITS IT RIGHT BACK UP AGAIN.
[2024-06-19] MEDS ORDERED: Acetaminophen 650 MG Supp PR PRN (08:05)
[2024-06-19] MEDS ORDERED: Promethazine HCl 25 MG Supp PR PRN (08:05)
[2024-06-19] MEDS ORDERED: Atropine Sulfate 1% Opth Soln 2ML BTL SL PRN (08:05)
[2024-06-19] MEDS ORDERED: LORazepam 1 MG Tab PO PRN (08:05)
[2024-06-19] MEDS ORDERED: Scopolamine Hydrobromide Patch TOP PRN (08:05)
[2024-06-19] MEDS ORDERED: Morphine Sulfate 20 MG/1ML 1 ML Oral Syringe SL PRN (08:05)
--- NOTE | 2024-06-19 08:25 | NUR ---
SYMPTOM MANAGEMENT AND CLARIFICATION OF COMFORT CARE STATUS WITH PATIENT. THIS PC RN SPOKE WITH NOC SHIFT RN, MENDEZ, REVIEWED PT REQUEST FOR HOSPICE/COMFORT CARE AND HIS CONTINUED REQUEST FOR WATER OR ICE CHIPS. PT LIKES TO BE ADDRESSED "JAK". JAK IS A/O X4. ABLE TO MAKE NEEDS KNOWN. PT IS NOT ABLE TO TOLERATE ICE CHIPS OR WATER. SEVERE DYSPHAGIA NOTED. PT VERBALIZES UNDERSTANDING THE RISKS OF PO INTAKE AND REFUSAL OF PEG TUBE. A FEW MOMENTS AFTER PO INTAKE, HE REGURITATES ALL FLUIDS. NO GASTRIC JUICES/BILE NOTED. PT HAS DIFFICULTY HOLDING HIS HEAD UP FOR MORE THAN 10 SECONDS. UNKNOWN IF THIS IS BASELINE. 2 WEEKS AGO: AMBULATING WITH WALKER, PREPARING 2-3 MEALS DAILY, CARING FOR HIS LIFE PARTNER, DRIVING SELF. C-PAP AT NIGHT ONLY. 1 WEEK AGO: FATIGUED QUICKLY, WEAKNESS, DIFFICULTY AMBULATING, UNSTEADY GAIT, HAVING FOOD DELIVERED. CHOKING ON SOLID/SOFT FOODS. N/V. C-PAP INTERMITTENT USE T/O DAY AND AT NIGHT. CURRENTLY: 1 ASSIST WITH WALKER. NOT TOLERATING C-PAP. PPP X 4, WEAK PEDAL PULSES. CHRONIC VENOSTASIS BLE. NOT TOLERATING LAYING IN HOSPITAL BED. TRIPODING SITTING ON THE EDGE OF BED. PHONE CALL PLACED TO PROVIDER TO OBTAIN UPDATED COMFORT CARE ORDERS. VERBAL ORDERS OBTAINED AND PLACED ACCORDINGLY. PATIENT SERVED IN THE [facility] THEN RETIRED FROM [facility]. PC TO REMAIN AVAILABLE NEEDED. PRIMARY RN NOTIFIED OF UPDATED ORDERS. CM NOTIFIED OF REQUEST FOR [facility] HOSPICE PLACEMENT.
--- NOTE | 2024-06-19 08:30 | NUR ---
pt sitting up on the side of the bed taking some ice chips and spittig the water out, he is a/ox4, very lummi, cooperative with care, follows commands well, denies pain at this time, was made comfort care durring the night at his insistance, currently on 3 liters o2 via n/c, reps even and unlabored, breath sounds are clear but pretty dim t/o, no cough noted, hrr, 2+ edema noted to b/l le, ppp unable to be palpated, cap refill< 3 sec, vs stable, afebrile, power glide to emery site is clear and patent, btx4, abd flat soft nontender, has brief on for incont, skin has pvd dark from calves down, otherwise ok, maew, weak, oliver, call light in reach.
--- NOTE | 2024-06-19 15:53 | NUR ---
CALLED TO ROOM BY PRIMARY RN TO SPEAK WITH PT'S NEPHEW, NAMITA RE: GOALS OF CARE. DURING THIS VISIT, NAMITA ASKED JAK MULTIPULE TIMES IF HE WANTED A FEEDING TUBE. JAK RECANTED TO HIS NEPHEW THAT HE HAD TO TAKE CARE OF HIS BROTHER IN-[place] PEG TUBE FOR 3 YEARS. "THAT IS NO LIFE AT ALL." JAK ALSO REPORTS, ORAL INTAKE IS VITAL TO HIS HAPPINESS. "I DON'T WANT A TUBE". AFTER THIS PC RN LEFT THE ROOM, PRIMARY RN CALLED THIS PC RN TO COME BACK TO THE ROOM PT'S NEPHEW HAD CHANGED HIS MIND TO MOVE FORWARD WITH PEG TUBE PLACEMENT. PT IS A/O X4. ABLE TO MAKE NEEDS KNOWN. FREQUENTLY ASKS FOR ICE CHIPS AND WATER. NEPHEW, NAMITA ATTEMPTED TO CONVINCE JAK TO PROCEED WITH PEG TUBE PLACEMENT. WHEN THIS PC RN ASKED JAK IF HE WAS GOING TO REFUSE PEG TUBE ONCE NAMITA LEFT, HE RESPONDED WITH "YEAH". NAMITA ASKED JAK ABOUT CHANGING HIS MIND WHEN HE LEAVES. JAK CONFIRMED HE WOULD DECLINE TUBE ONCE NAMITA LEFT. NAMITA VERBALIZED WANTING TO HONOR HIS UNCLES WISHES. CONCLUSION OF VISIT, PT TO REMAIN ON COMFORT CARE AND DISCHARGE TO A MEDICAL FACILITY FOR HOSPICE CARE. PRIMARY RN, PACKAGE DELIVERY DRIVER AND PROVIDER UPDATED.
--- NOTE | 2024-06-19 16:25 | NUR ---
SHIFT SUMMARY 1230 ASSUMED CARE OF PT, SITTING UP TO EOB. DR WATSON HERE TO SEE PT AND DISCUSS PLAN OF CARE. PT NOW ON COMFORT CARE, DECLINING TO HAVE PEG TUBE PLACED. PT'S NEPHEW NOTIFIED AND TO . PALLIATIVE CARE TO RM WELL TO TALK WITH PT AND NEPHEW; ALL AGREEABLE TO PT DECLINING PEG TUBE AND BECOMING COMFORT CARE. HIP HOP DANCER NOTIFIED AND LATER TO RM TO SEE PT AND EXPLAIN D/C TO [facility]. PT AGREEABLE. PT HAS BEEN EATING ICE AND SIPS OF ICE WATER SINCE BECOMING COMFORT CARE. PT ALSO REQUESTED POPSICLE. PT NOTED TO BE CHOKING AFTER SIPS OF ALL LIQUID. PT USING SUCTION, SELF, NEEDED. CLEANED AND CHANGED FOR INCONTINENCE. RESTING QUIETLY IN BED AT THIS TIME. HOB ELEVATED FOR COMFORT. CALL LT IN REACH.
--- NOTE | 2024-06-19 18:10 | NUR ---
DR MICHAUD BY THIS EVENING TO SEE PT AND AGREEABLE THAT PT IS NOW COMFORT CARE. PT CONTINUES TO REST QUIETLY, BUT WILL WAKE FOR CARE. CHANGED FOR INCONTINENCE NEEDED.
--- NOTE | 2024-06-19 18:15 | NUR ---
DR MICHAUD BY THIS EVENING TO SEE PT AND REVIEW PLAN OF CARE. DR MICHAUD UPDATED ON PT'S CHOICE OF COMFORT CARE. DR MICHAUD AGREEABLE WITH PT'S DECISION. PT RESTING QUIETLY AT THIS TIME. INCONTINENT OF BOWEL AND BLADDER; CLEANED AND CHANGED. CALL LT IN REACH. BED ALARM ON FOR SAFETY.
[2024-06-20] MEDS ORDERED: LORazepam 2 MG/ML 1ML Injection IV PRN (01:30)
--- NOTE | 2024-06-20 03:22 | NUR ---
MANAGER OPERATIONAL SUMMARY AT START OF SHIFT PT WAS WIDE AWAKE, ORIENTED X 4, ASKING QUESTIONS ABOUT TRANFERING TO A FACILITY FOR HOSPICE. SAYS HE WORRIES ABOUT DISAPPOINTING HIS NEPHEW BUT DOESNT WANT A FEEDING TUBE AND IS TIRED OF FEELING LIKE HE CANNOT BREATHE. HE ASKED A LOT OF QUESTIONS ABOUT THE AND DYING PROCESS AND STATES HE "DOESNT WANT TO SUFFER". ALL QUESTIONS ANSWERED TO PT SATISFACTION. WE TALKED ABOUT DIFFERENT MEASURES/TREATMENTS/MEDICATIONS THAT WE CAN USE TO HELP KEEP HIM COMFORTABLE. WE DISCUSSED THE USE OF ROXANOL TO HELP WITH HIS AIR HUNGER HIS RESPIRATORY RATE AT 1999 WAS ABOUT 30-32 AND HE WAS "TRIPODING" AND GASPING FOR AIR WITH ACCESSORY MUSCLE USE. HE SAYS HE WOULD LIKE TO BE MEDICATED FOR HIS BREATHING AND WANTS TO FEEL MORE RELAXED. WE DISCUSSED HOW SOMETIMES THESE MEDICATIONS CAN MAKE PATIENTS FEEL VERY SLEEPY AND MUCH LESS INTERACTIVE AND HE SAID WAS HAPPY WITH THIS. HE WAS VERY ADAMENT AND CLEAR THAT HE IS "READY TO GO" BUT THAT IT HAS BEEN HARD TO COMMUNICATE THIS WITH HIS NEPHEW BECAUSE HIS NEPHEW ALWAYS WANTS HIM TO "FIGHT". WE REASSURED HIM THAT HIS WISHES WILL BE HONORED AND THAT WE WILL KEEP HIM COMFORTABLE PER HIS REQUEST. WE HAVE BEEN MEDICATING HIM WITH ROXANOL AND ATIVAN TO KEEP HIS RESPIRATORY RATE 12-20, WHICH IS THE TYPICAL STANDARD OF CARE FOR COMFORT CARE PATIENTS. THROUGHOUT THE SHIFT, PT HAS BECOME MORE HYPOXIC AND NICOLE IN APPEARANCE, SLIGHTLY CONFUSED, BUT APPEARS MUCH MORE COMFORTABLE. HE HAS STARTED TO FORGET WHERE HE IS AND WHAT IS GOING ON AND HAS HAD TO BE REMINDED THAT HE CHOSE TO GO ON HOSPICE. WHEN REMINDED, HE NODS HIS HEAD "YES" AND THEN FALLS BACK ASLEEP.
--- NOTE | 2024-06-20 05:58 | NUR ---
TIME OF TIME OF 05. CONFIRMED BY GAGANDEEP CLINE RN. DR. VERONICA NOTIFIED OF AT 0515. PATIENTS NEXT OF KIN NAMITA CALLED VIA TELEPHONE TWICE WITH NO RESPONSE AND NO VOICEMAIL SETUP. CHARGE NURSE LAVERN NOTIFIED THAT FAMILY HAS NOT BEEN NOTIFIED YET OF PATIENTS . SIGN PLACED ON DOOR FOR FAMILY TO SPEAK WITH STAFF BEFORE ENTERING ROOM.
--- NOTE | 2024-06-20 10:12 | NUR ---
SPOKE WITH PT'S NEPHEW BY PHONE THIS MORNING AT 1005. HE REQUESTS PT'S CARE BE TRANSFERRED TO [facility] IN [place]. HOME INFORMATION RELAYED TO LABORER/GRADE CHECK. BARNEY ASKED FOR PT'S BELONGINGS BE SEND WITH PT UPON TRANSFER. MATTIENAMITA WARNER'S CELL PHONE IS [phone], [facility] HOME PHONE IS [phone].
== END 2024-06-20 05:10 | DRG 177 ==
LOC: ER 07:24 → MEDS 07:25 → ERHOLD 07:25 → MEDS 13:29
PROVIDERS: Student in an Organized Health Care Education/Training Program; ADMIT Family Medicine
PROC: 5A09457 Assistance with Respiratory Ventilation, 24-96 Consecutive Hours, Continuous Positive Airway Pressure (ICD-10-PCS; principal; 2024-06-16)
PROC: 3E03329 Introduction of Other Anti-infective into Peripheral Vein, Percutaneous Approach (ICD-10-PCS; 2024-06-16)
PROC: 0DJ08ZZ Inspection of Upper Intestinal Tract, Via Natural or Artificial Opening Endoscopic (ICD-10-PCS; 2024-06-17)
DX: J69.0 Pneumonitis due to inhalation of food and vomit (principal); G93.41 Metabolic encephalopathy; I50.43 Acute on chronic combined systolic (congestive) and diastolic (congestive) heart failure; J96.21 Acute and chronic respiratory failure with hypoxia; N17.9 Acute kidney failure, unspecified; I13.0 Hypertensive heart and chronic kidney disease with heart failure and stage 1 through stage 4 chronic kidney disease, or unspecified chronic kidney disease; Z66 Do not resuscitate; Z51.5 Encounter for palliative care; J44.0 Chronic obstructive pulmonary disease with (acute) lower respiratory infection; N18.4 Chronic kidney disease, stage 4 (severe); K22.10 Ulcer of esophagus without bleeding; K22.2 Esophageal obstruction; G47.33 Obstructive sleep apnea (adult) (pediatric); E78.5 Hyperlipidemia, unspecified; I25.10 Atherosclerotic heart disease of native coronary artery without angina pectoris; K21.9 Gastro-esophageal reflux disease without esophagitis; F41.8 Other specified anxiety disorders; E66.9 Obesity, unspecified; D63.1 Anemia in chronic kidney disease; E16.2 Hypoglycemia, unspecified; Z87.19 Personal history of other diseases of the digestive system; I49.3 Ventricular premature depolarization; K31.819 Angiodysplasia of stomach and duodenum without bleeding; I25.2 Old myocardial infarction; Z86.73 Personal history of transient ischemic attack (TIA), and cerebral infarction without residual deficits; Z85.46 Personal history of malignant neoplasm of prostate; Z92.3 Personal history of irradiation; Z86.19 Personal history of other infectious and parasitic diseases; Z95.1 Presence of aortocoronary bypass graft; Z90.49 Acquired absence of other specified parts of digestive tract; Z95.5 Presence of coronary angioplasty implant and graft; Z98.52 Vasectomy status; Z98.42 Cataract extraction status, left eye; Z98.41 Cataract extraction status, right eye; Z87.891 Personal history of nicotine dependence; Z79.899 Other long term (current) drug therapy; Z79.02 Long term (current) use of antithrombotics/antiplatelets; Z68.33 Body mass index [BMI] 33.0-33.9, adult
CPT/HCPCS: 0202U; 36415; 71046; 80048; 80053; 82947; 83735; 83880; 84145; 85025; 92610; 93005; 93010; 93306; 94640; 94664; 94760; 96365-59; 96366; 96372; 96375; 96375-59; 96376; 97116; 97161; 99285-25; A9270; C1751; G0378; J0696; J0780; J1650; J1940; J2003; J2060; J2704; J7030; J7050; J7060; J7120; U0002